=== PATIENT | male | born 1935 | race Caucasian/White ===

== ENCOUNTER 2017-09-11 11:41 | Inpatient (IN) | payer MEDICARE, OTHER ==
[2017-09-11] VITALS (8 sets, daily range): BP systolic 115–155; BP diastolic 47–100
[~2017-09-11] VITALS: Ht 177.8 cm; Wt 67.2 kg
--- NOTE | ~2017-09-11 | WRIGHTHP ---
[place], [place] PATIENT HISTORY AND PHYSICAL EXAM NAME[facility]: [id number] UNIT #: [id number] ROOM: [facility] DOCTOR: KARL YAP MD BIRTHDATE: [birth year] DOS: 09/11/2017 HISTORY OF PRESENT ILLNESS: The patient is an 81-year-old gentleman who presented to the Emergency Department with increased weakness, hypoglycemia, not eating well recently and has cough and shortness of breath, progressively getting worse for 3-4 days. The patient was evaluated in the Emergency Department and found to be septic with an elevated lactic acid level, tachycardic, hypoxemic and chest x-ray showing lingular pneumonia. The patient looked very weak and sick and was recommended for admission and further management in the Intensive Care Unit. The patient was diagnosed as having severe sepsis, hypokalemia and elevated INR. After admission, the patient is awake, but very weak, has difficulty in speaking. He also appears short of breath and wearing oxygen by facemask. The patient's pulse ox was only 87% at room air when he presented to the Emergency Department and now he is on 4 liters of oxygen by nasal cannula and receiving breathing treatment. No recent chest pain. No other GI or urinary symptoms. REVIEW OF SYSTEMS: LUNGS: Increasing shortness of breath and hypoxemia. GASTROINTESTINAL: No nausea, vomiting, diarrhea, constipation, but the patient did have decreased appetite. CARDIOVASCULAR: No chest pains or palpitations. PHYSICAL EXAMINATION: GENERAL: The patient is somewhat lethargic and tired and short of breath, receiving oxygen, unable to provide much history, generalized weakness. VITAL SIGNS: Blood pressure 146/68, heart rate has improved to 82 beats per minute from 112 beats per minute at admission, breathing 23 times per minute, temperature of 98.6. HEENT AND NECK: Extraocular movements are intact. Sclerae are anicteric. Oral mucosa is moist and clean. No obvious facial weakness. Neck is supple without any lymphadenopathy. No thyromegaly. No JVD. No carotid arterial bruits. LUNGS: Clear to auscultation. No wheezing. No rhonchi. CARDIOVASCULAR SYSTEM: Heart rate is regular in rate and rhythm. S1 and S2 normally audible. No significant murmur or any other abnormal cardiac sounds. ABDOMEN: Soft, nontender. No obvious organomegaly. Bowel sounds are present. No obvious herniation. EXTREMITIES: Without significant cyanosis or edema. Warm to touch. CENTRAL NERVOUS SYSTEM: Alert and oriented x 3. Cranial nerves II-XII are intact. Speech is normal. The patient is able to move all extremities. Normal muscle strength. Deep tendon reflexes are equal on both sides. Plantars were downgoing. LABORATORY DATA: BUN and creatinine 44 and 1.4, potassium low at 3. ProBNP of 2300. Chest x-ray is showing infiltrate consistent with bronchopneumonia in the anterior segment of the lingula. White cell count elevated to 25,000, hemoglobin of 18. IMPRESSION AND PLAN: [place], [place] PATIENT HISTORY AND PHYSICAL EXAM NAME: GIOVANNI TAYLOR UNIT #: [id number] ROOM: [facility] DOCTOR: KARL YAP MD BIRTHDATE: [birth year] 1. The patient presenting with severe sepsis, pneumonia, tachycardia and leukocytosis with elevation of lactic acid level to 2.8. The patient is to be given normal saline, antibiotics, oxygen, breathing treatments and followed closely in the ICU. The patient's prognosis remains guarded. 2. Hypoglycemia, apparently because the patient has been on insulin and also not eating well because of his acute sickness. I will hold back his insulin, check his sugars every 4 hours and treated accordingly. The patient will be given Glucerna supplements and kept on no concentrated sweet diet. 3. Benign essential hypertension. Blood pressure will be monitored and treated. The patient is to be kept on lisinopril, diltiazem and Coreg that he was taking at home. 4. Lingular pneumonia, to be treated with Levaquin. 5. Chronic atrial fibrillation, with heart rate is controlled with digoxin. The patient is anticoagulated with Coumadin. 6. Elevated INR to 6. Coumadin has been put on hold and protimes will be monitored daily. 7. Type 2 diabetes mellitus. The patient is hypoglycemic apparently from not eating well. Blood sugar is to be monitored and treated accordingly. His insulin has been held back. 8. Coronary artery disease of the [place] vessels and coronary artery bypass grafts, without any chest pains recently. 9. History of centrilobular emphysema. I will continue bronchodilators. 10. Mixed hyperlipidemia, treated with Pravachol, which will be continued. 11. Vitamin D deficiency, treated with supplements. KARL YAP MD CM:HISPHYS:PATIENT HISTORY AND PHYSICAL EXAMINATION [id number] KARL YAP MD 09/11/17 1756 interface
--- NOTE | ~2017-09-11 | PROC NOTE ---
[place], [place] PROCEDURE NOTE NAME: GIOVANNI TAYLOR UNIT #: [id number] [facility] DOCTOR: JOVON GREGORY BIRTHDATE: [birth year] DOS: MBSS REPORT REFERRING PHYSICIAN: Dr. Mcmanus. RADIOLOGIST: Dr. Farmer. INDICATIONS: The patient is an 81-year-old male admitted to [facility] on 09/11/2017 due to increased weakness, shortness of breath, cough and hypokalemia. Chest x-ray was revealing for lingular pneumonia. The patient also with sepsis. MBS ordered due to concern for aspiration. PREVIOUS MEDICAL HISTORY: Includes CAD, DM 2 and AFib. INTERVIEW: The patient denied concerns regarding swallowing. He reported that he was tolerating a regular diet with thin liquids prior to admission and has not had pneumonia since 2016. He endorsed significant weakness currently and baseline cough. He denied coughing while eating/drinking. ORAL MECHANISM/MOTOR SPEECH EXAM: Mild asymmetry of the lower face noted in motion with right side range of motion reduced. Tongue strength mildly reduced. Volitional cough and glottal coup reduced for sharpness. The patient with upper and lower dentures in place. The patient's speech was 100% comprehensible with no evidence of motor speech disorder. MBSS: This exam was viewed in the lateral plane. The patient trialled the following barium impregnated consistencies: Single sips of thin liquid via straw x 1, multiple consecutive sips of thin liquid via straw x 1, single sip of nectar thickened liquid via straw x 1, multiple consecutive sips of nectar thickened liquids via straw x 1, teaspoon of pureed x 1, bite of soft solid x 1 and bite of coarse solid x 1. The patient was impulsive throughout, taking large bites/sips and required frequent cues to limit bolus size. ORAL PHASE: Adequate bolus acceptance with no anterior loss noted. AP bolus transit was timely and adequate. Mastication of coarse solid was moderately prolonged and incomplete. The patient masticated in munching pattern. Mastication of soft solid was timely and adequate. Piecemeal deglutition noted with solids. Mild oral residue noted across consistencies, cleared with consecutive swallows. PHARYNGEAL PHASE: Initiation of the swallow response was timely. HLE was reduced with subsequent incomplete epiglottic retroflexion. This resulted in mild amount of silent aspiration of thin liquids during the swallow. No aspiration or penetration was observed with all other consistencies. Base of tongue to posterior pharyngeal wall contact was adequate. Trace pharyngeal residue maintained post-swallow which cleared with subsequent swallows. UES: Unremarkable. [place], [place] PROCEDURE NOTE NAME: GIOVANNI TAYLOR UNIT #: [id number] ROOM: [facility] DOCTOR: JOVON GREGORY BIRTHDATE: [birth year] COMPENSATORY STRATEGIES: The patient independently implemented chin tuck while drinking. This did not eliminate aspiration or penetration. No other strategies were trialed due to nature of dysphagia and patient's difficulty following cues. IMPRESSION: The patient presents with mild oropharyngeal dysphagia classified by incomplete mastication of solids and reduced HLE with resulting silent aspiration of thin liquids. Recommend soft diet with nectar thickened liquids and [employer]ESSOR treatment. RECOMMENDATIONS: 1. Downgrade diet to soft foods with nectar thickened liquids. 2. Aspiration precautions: Fully upright, awake and alert for all p.o., small bites/sips, oral care at least b.i.d. PLAN OF CARE: M[employer] COMMUNICATION[employer] PROFESSOR will follow the patient to ensure tolerance to diet, promote adherence aspiration precautions and provide dysphagia treatment aimed at improving pharyngeal strength. Findings and recommendations were discussed with the patient and RN who indicated understanding. Thank you for consulting. If you have any questions or concerns, please contact the M[employer] COMMUNICATION[employer] PROFESSOR Department at [phone]. Jovon Wells CM:PROCNOTE:PROCEDURE NOTE [id number] JOVON GREGORY
--- NOTE | ~2017-09-11 | EKG ---
[place], [place] ELECTROCARDIOGRAM REPORT NAME: GIOVANNI TAYLOR UNIT #: [id number] ROOM: [facility] DOCTOR: YVETTE MAI MD,JHONNY BIRTHDATE: [birth year] DOS: 09/13/2017 Electrocardiogram done for the patient 09/13/2017 at 2:04 p.m. Atrial fibrillation noted with a heart rate of 66 beats per minute. Nonspecific ST-T changes noted. The patient with poor R-wave progression. JHONNY CRAWFORD MD CM:EKGRPT:ELECTROCARDIOGRAM REPORT [id number] JHONNY MAI MD
--- NOTE | ~2017-09-11 | PROC NOTE ---
[place], [place] PROCEDURE NOTE NAME: GIOVANNI TAYLOR UNIT #: [id number] ROOM: 522 DOCTOR: YVETTE MAI MD,JHONNY BIRTHDATE: [birth year] DOS: 09/15/2017 BRONCHOSCOPY PREOPERATIVE DIAGNOSES: The patient's severe ineffective cough for this patient without any sputum expectoration with acute respiratory failure, sepsis. POSTOPERATIVE DIAGNOSES: The patient has evidence of copious amount of mucopurulent material removed from the endobronchial tree bilaterally, much greater on the left than the right side. Also, the mucus impaction cleared. PROCEDURE DESCRIPTION: Informed consent obtained for the patient. He was brought to the OR and placed in supine position. Conscious sedation administered by the Anesthesia Department. After achieving proper sedation, airway introduced into the mouth. Bronchoscope was introduced into the airway into laryngeal area. Epiglottis vocal cords were seen. Bronchoscope advanced to the vocal cords into tracheal lumen. Tracheal lumen for the patient was identified. It shows a copious amount of thick green purulent secretion tracking down to the nita level. Secretion suctioned out clear with normal saline wash. The right upper, right middle, rowing lower, left upper, lingular lower bronchi were all examined. The patient was noted with a copious amount of purulent secretion causing impaction of the airways, the left upper, lingular lower lobe bronchi and the left main stem bronchus. All secretions suctioned out clear to the subsegments for this patient with help of normal saline wash. Right upper, right middle, right lower lobe opening were noted with moderate amount of bilious secretion with moderate impaction of the mucus as well. All the secretions suctioned out clear for the patient up with normal saline wash. Mucus plugs are removed. Procedure was well tolerated by the patient without any complications. Postoperative findings will be discussed with the patient once the patient recovers the effects of acute sedation. No immediate changes in the treatment at this time will be necessary. JHONNY CRAWFORD MD CM:PROCNOTE:PROCEDURE NOTE [id number] JHONNY MAI MD
--- NOTE | ~2017-09-11 | PR ---
[place], [place] PROGRESS NOTE NAME: GIOVANNI TAYLOR UNIT #: [id number] ROOM: 522 DOCTOR: YVETTE MAI MD,JHONNY BIRTHDATE: [birth year] DOS: 09/15/2017 PULMONARY PROGRESS NOTE SUBJECTIVE: He was seen and examined on 09/15/2017. Comfortably resting. Coughing has been noted excessive chest congestion, inability to expectorate sputum. At the present time, the patient denies symptoms of shortness of breath at rest. There were no symptoms of chest pain or hemoptysis reported. Wheezing was noted intermittently. He is n.p.o. past midnight for bronchoscopy. Denies symptoms of nausea, vomiting, diarrhea, or abdominal pain. Denies any hematuria, suprapubic pain. No symptoms of headache or diplopia. General weakness, fatigue with persistent. OBJECTIVE: VITAL SIGNS: Normal temperature this morning, respiratory rate 18, heart rate of 89, blood pressure 125/63 and 141/60. The pulse oxygen saturation on 2 liters nasal cannula 98% saturation. HEENT: Age-related changes. Head was atraumatic. Eyes nonicterus. NECK: Supple. CARDIOVASCULAR: S1, S2 is audible. LUNGS: Noted general reduction in the breath sounds bilaterally. ABDOMEN: Soft, nontender and flat. EXTREMITIES: Without acute edema. MUSCULOSKELETAL: Without any acute deformities. IMPRESSION: 1. The patient who has been noted resolution Coumadin toxicity. 2. The patient with oropharyngeal dysphagia. 3. Acute hypoxic respiratory failure. 4. Chronic obstructive pulmonary disease. 5. Acute bronchitis, rule out any pneumonia. 6. Severe sepsis, which has been currently noted, resolved. PLAN OF MANAGEMENT: Proceed with bronchoscopy at this time. Bronchodilator to be continued. Additional change in treatment as necessary will be ordered accordingly. INR was still noted in the low therapeutic range at 2.0 today. The patient remains off the Coumadin and other anticoagulants. No changes in antibiotic this morning. The culture will be reviewed with the bronchoscopy for any modification treatment to be done after that. Usual care, other supportive therapy, plan of management and care. Oxygen supplementation to maintain a pulse ox saturation of 92% or greater. [place], [place] PROGRESS NOTE NAME: GIOVANNI TAYLOR UNIT #: [id number] ROOM: 522 DOCTOR: JHONNY TABOR MD BIRTHDATE: [birth year] JHONNY CRAWFORD MD CM:RASHMI [id number] JHONNY MAI MD 09/17/17 0104 interface
--- NOTE | ~2017-09-11 | CON ---
[place], [place] REPORT OF CONSULTATION NAME: GIOVANNI TAYLOR UNIT #: [id number] ROOM: [facility] DOCTOR: YVETTE MAI MD,JHONNY BIRTHDATE: [birth year] DOS: 09/12/2017 PULMONARY CONSULTATION AND EVALUATION MANAGEMENT REASON FOR CONSULTATION: Assess the patient for current acute pneumonia. RQUESTING PHYSICIAN: This is an 81-year-old white male for the consultation requested by Dr. Mcmanus. HISTORY OF PRESENT ILLNESS: This is an 81-year-old white male who has been seen in the Emergency Room on 09/11/2017. The patient reported symptoms of having severe cough, which has been noted for the past several days, getting progressively worse. The cough has been noted without any sputum expectoration. Cough has been noted multiple times. The patient denies any symptoms of hemoptysis with that. Shortness of breath was also reported with symptoms of chest pain described. There were no symptoms of wheezing reported by the patient. The patient has been brought to the hospital with hypoxia was also noted. Admission pulse ox saturation 87%. The patient has been assessed in the hospital. Chest x-ray of the patient reported as a possibility of acute pneumonia in the left lingular density and required further hospitalization. He denies any symptoms of chest pain at this time. Shortness of breath has been noted somewhat decreased. The cough is still noted intermittently, but the intensity and frequency noted somewhat decreased. REVIEW OF SYSTEMS: CONSTITUTIONAL SYMPTOMS: Fatigue and tiredness noted without symptoms of fever or chills. EYES: Denies any burning, redness, or tenderness. EARS, NOSE, THROAT SYMPTOMS: Denies sore throat, hoarseness, otalgia, postnasal drainage or epistaxis. CARDIOVASCULAR: Denies abdominal pain, edema, pain, lower extremities. GASTROINTESTINAL: The patient did not report symptoms of nausea, vomiting, diarrhea, abdominal pain, hematemesis, melena, or hematochezia. GENITOURINARY SYMPTOMS: No dysuria, suprapubic pain, hematuria. CENTRAL NERVOUS SYSTEM: Denies dizziness, headache, diplopia, syncopal episode, general weakness, fatigue was reported. Remaining systems for the patient was noted to be negative. PAST MEDICAL HISTORY: 1. The patient was reported with coronary artery disease. 2. Type 2 diabetes mellitus. 3. Atrial fibrillation on anticoagulation, chronic. 4. Essential hypertension. 5. History of chronic obstructive pulmonary disease. The patient has recently used the doxycycline and prednisone. PAST SURGICAL HISTORY: 1. Noted as coronary artery bypass graft in 1987. 2. Tonsillectomy. [place], [place] REPORT OF CONSULTATION NAME: GIOVANNI TAYLOR UNIT #: [id number] ROOM: [facility] DOCTOR: JHONNY TABOR MD BIRTHDATE: [birth year] SOCIAL HISTORY: The patient lives at home. He has not been reported any history of tobacco use. There was no history of alcohol or illicit drug use. FAMILY HISTORY: Reported for diabetes, hypertension, and CVA. HOME MEDICATIONS: Listed use of Advair, recent use of tapering prednisone, lisinopril, hydrochlorothiazide, metformin, Coumadin, digoxin, Coreg, and 70/30 mixture of insulin as well as DuoNeb for the patient p.r.n. use as well. DRUG ALLERGIES: Noted no known drug allergies. PHYSICAL EXAMINATION: GENERAL: This is an 81-year-old male patient currently comfortably resting on his bed without acute distress. Height of 5 feet 10 inches, weight 140 pounds, BMI 20. VITAL SIGNS: The patient shows a normal temperature, respiratory rate 20-22, heart rate of 79-112 noted on admission, blood pressure 140/90-139/55. Pulse oxygen saturation for the patient on 2 liters nasal cannula 94% saturation on room air, 87% on rest. HEENT: Examination shows head was atraumatic. Eyes nonicterus. NECK: Supple. CARDIOVASCULAR: S1, S2 is audible. LUNGS: The patient was noted without any wheezing or crackles at the present time. The breaths are noted mildly diminished bilaterally. ABDOMEN: Soft, nontender, flat. EXTREMITIES: The patient noted without any acute edema. MUSCULOSKELETAL: No obvious deformities. SKIN: No lesions or rashes. CENTRAL NERVOUS SYSTEM: The patient noted as nonfocal. LABORATORY DATA: Lactic acid 2.8 on admission, follow up 2.3. Influenza A and B, nasal washing antigen yesterday were normal. CBC that was done yesterday, WBC count 25.1, hemoglobin 18.2, hematocrit 52.4, platelet count 626,000, 95% segmented neutrophils noted. PT/INR noted 6.1 yesterday with PTT elevated as 51 as well. CMP of the patient that was done yesterday, BUN 44, creatinine 1.39. Potassium 3.0. Total bilirubin 1.2. Troponin 0.05. The glucose noted as 69 yesterday as well, which is already treated. The BMP 420, glucose 190, BUN 37, creatinine 1.23. PT/INR noted as 7.9. CBC of the patient this morning, WBC 19.9, hemoglobin 15.2, hematocrit 47.5, platelet count 418,000, 85% segmented neutrophils. Urine culture that was done yesterday showed no bacterial growth. The chest x-ray just one view was done, which was reviewed, shows density noted in the right hilar area and a lymph node as well in lingula could be a pulmonary nodule. Lateral view does not well define current abnormality. IMPRESSION: 1. The patient will be currently admitted to the hospital as he meet the criteria for acute sepsis, most likely related to acute pneumonia. 2. Density which are noted in the left lingula, possibly right perihilar infiltration with a consideration for the acute pneumonia as well, rule out any 2 nodules in the lingula as well. [place], [place] REPORT OF CONSULTATION NAME: GIOVANNI TAYLOR UNIT #: [id number] ROOM: [facility] DOCTOR: YVETTE MAI MD,[facility] BIRTHDATE: [birth year] 3. The patient with acute hypoxic respiratory failure secondary to that. 4. History of chronic obstructive pulmonary disease at this time, but not noted any evidence of acute exacerbation. 5. Given the toxicity related to drug interaction for elevation of the INR with the recent use of doxycycline very likely reason. 6. Chronic atrial fibrillation, mild rapid ventricular response noted on admission. 7. Polycythemia, most likely secondary to hemoconcentration developed from volume contraction, seemed to be resolved. 8. Acute kidney injury, also resulting from complication of prerenal component with volume depletion and the sepsis combination. 9. Type 2 diabetes mellitus. PLAN OF TREATMENT: At this time, the patient will be continued on Levaquin, has received yesterday Rocephin and Zithromax. The oxygen supplementation will be continued to maintain pulse ox saturation 92% or greater. Monitor the cultures of the blood, which were taken yesterday. Intervening to be carefully given not to cause the fluid overload. The Coumadin remains on hold until the INR noted to normal range that will be started at a lower dose with usual dose with close monitoring to be continued. Supportive therapy as a plan of management usual treatment. Bronchodilators, continue help mobilize secretions as well has been ordered. Sputum for Gram stain and culture if the patient is able to expectorate sputum could be done as well. Additional treatment changes to be made for the patient based on progression of the illness. Chest x-ray PA and lateral will be repeated tomorrow morning as well to reassess the current pulmonary abnormality including density to rule out any nodules. Thank you for allowing me to participate in the care of this patient. JHONNY CRAWFORD MD CM:CONSTR:REPORT OF CONSULTATION 1425 09/13/17 0230 interface
--- NOTE | ~2017-09-11 | PR ---
[place], [place] PROGRESS NOTE NAME: GIOVANNI TAYLOR UNIT #: [id number] ROOM: [facility] DOCTOR: YVETTE MAI MD,JHONNY BIRTHDATE: [birth year] DOS: 09/14/2017 SUBJECTIVE: The patient was still noted chest congestion. The patient is coughing and able to expectorate sputum. Denies symptoms of hemoptysis. Denies symptoms of nausea, vomiting, diarrhea, or dysphagia. Denies symptoms of hematuria, pain in the flank area. The patient is having general weakness, fatigue was noted. Remaining systems were reviewed. They were noted all negative. OBJECTIVE: VITAL SIGNS: Normal temperature, respiratory rate 20, heart rate 76, blood pressure 142/64. The pulse oxygen saturation on 2 liters 99% saturation. HEENT: Showed no new change. NECK: Supple. CARDIOVASCULAR: S1, S2 audible. LUNGS: Noted with moderate decreased breath sounds with scattered expiratory wheezing and crackles. ABDOMEN: Soft, nontender. Bowel sounds present. EXTREMITIES: Without any acute edema. MUSCULOSKELETAL: Without an acute deformity. SKIN: Visible skin with no lesions or rashes. CENTRAL NERVOUS SYSTEM: Cranial nerves 2-12 intact, generally weak and fatigued were noted without any focal deficit. LABORATORY DATA: CBC this morning: WBC count of 16.5, hemoglobin and hematocrit normal, platelet count 421,000. BMP of the patient this morning, BUN 33, creatinine normal, glucose 133. PT/INR was still noted therapeutic at 2.6. IMPRESSION: 1. The patient with resolving Coumadin toxicity noted therapeutic INR for bronchoscopy tomorrow. ____ secretion, mucus impaction of major airways with acute exacerbation of chronic obstructive pulmonary disease. 2. Chronic atrial fibrillation. PLAN OF MANAGEMENT: The patient ordered the Eliquis by the Cardiology Services, which were placed on hold. The anticoagulation placed on hold for bronchoscopy until tomorrow evening. The patient will be continued on the previous therapy, plan of management and care plan. Usual care. Other supportive plan of management and care. Physical therapy might be necessary for this patient for the overall weakness and fatigue. [place], [place] PROGRESS NOTE NAME: GIOVANNI TAYLOR UNIT #: [id number] ROOM: [facility] DOCTOR: YVETTE MAI MD,JHONNY BIRTHDATE: [birth year] JHONNY CRAWFORD MD CM:PNTRANS [id number] JHONNY MAI MD 09/15/17 0952 interface
--- NOTE | ~2017-09-11 | PR ---
[place], [place] PROGRESS NOTE NAME: GIOVANNI TAYLOR UNIT #: [id number] ROOM: [facility]- DOCTOR: YVETTE MAI MD,JHONNY BIRTHDATE: [birth year] DOS: 09/13/2017 PULMONARY PROGRESS NOTE SUBJECTIVE: The patient noted comfortable at this time without any acute distress, but still noted with a cough, which were noted quite a bit for the patient. Inability to expectorate sputum. Excessive chest congestion were reported. He denies symptoms of abdominal pain, nausea or vomiting. The patient has not been noted with any symptoms of pain of the lower extremity. General weakness and fatigue were still noted. Denies symptoms of nausea or vomiting. Remaining systems were reviewed. They were noted all negative. OBJECTIVE: VITAL SIGNS: Normal temperature, respiratory rate 20, heart rate 72, blood pressure 152/68. Intake patient 1370, output 1050 mL. Pulse oxygen saturation 3 liters 96-95% saturation. HEENT: Examination shows head was atraumatic. Eyes nonicterus. NECK: Supple. CARDIOVASCULAR: S1, S2 is audible. LUNGS: The patient was noted without any wheezing or crackles at the present time. ABDOMEN: Soft, nontender. EXTREMITIES: The patient noted without any acute edema. SKIN: Visible skin, no lesions or rashes. MUSCULOSKELETAL: Noted without any acute deformities. CENTRAL NERVOUS SYSTEM: For the patient was noted at this time intact. LABORATORY DATA: The PT/INR for the patient was noted as 3.5 today. BMP this morning, BUN 36, creatinine was normal, glucose 137. Remaining electrolytes, normal. CBC of the patient today: WBC count 17.7, hemoglobin and hematocrit normal, platelet count was normal. The chest x-ray of the patient that was done in the morning, does not show any acute infiltration, changes of COPD and hyperinflation were noted. Modified barium swallow was also done for this patient on 09/12/2017 shows the patient was noted with dysphagia for the patient with aspiration. IMPRESSION: 1. The patient who has been currently admitted to the hospital noted with severe acute sepsis for the patient's acute tracheobronchitis. 2. Oropharyngeal dysphagia. 3. Acute hypoxic respiratory failure. 4. Suspected diagnosis of chronic obstructive pulmonary disease as well. 5. Drug interaction. The patient elevation with Coumadin toxicity resolving. 6. Acute kidney injury ____ resolving. 7. Resolving overall sepsis. PLAN OF TREATMENT: No changes in the plan of therapy for the patient except continue to hold the Coumadin. The patient's Coumadin will be resumed on Friday [place], [place] PROGRESS NOTE NAME: GIOVANNI TAYLOR UNIT #: [id number] ROOM: [facility] DOCTOR: YVETTE MAI MD,JHONNY BIRTHDATE: [birth year] as he was assessed for the fibrobronchoscopy because of severe coughing, inability to expectorate sputum to be done on Friday morning. By that time, the PT/INR should be therapeutic. Continue current antibiotic. Follow closely and strict aspiration precautions to prevent aspirations. The risk and the benefits of procedure has been discussed with the patient. He was agreeable and the procedure was scheduled to be done in the OR for the patient on 09/15/2017. Other supportive plan of management and care plan. JHONNY CRAWFORD MD CM:PNTRANS [phone] [id number] JHONNY MAI MD 09/13/172111 interface
--- NOTE | ~2017-09-11 | PR ---
[place], [place] PROGRESS NOTE NAME: GIOVANNI TAYLOR UNIT #: [id number] ROOM: [facility] DOCTOR: KARL YAP MD BIRTHDATE: [birth year] DOS: 09/15/2017 SUBJECTIVE: The patient continues to improve, he is going for bronchoscopy by Dr. Alvarado today. OBJECTIVE: VITAL SIGNS: Blood pressure 123/72, heart rate of 100 beats per minute, afebrile, breathing 22 times per minute. GENERAL APPEARANCE: The patient is alert and oriented times 3, in no visible distress. Generalized weakness. HEENT AND NECK: Exam within normal limits. CARDIOVASCULAR SYSTEM: Heart rate is regular in rate and rhythm. S1 and S2 normally audible. LUNGS: Clear to auscultation. ABDOMEN: Soft, nontender. No obvious organomegaly. Bowel sounds are present. EXTREMITIES: Without significant cyanosis or edema. IMPRESSION: 1. The patient with large lingular pneumonia, which has resolved on the chest x-ray. The patient going for bronchoscopy by Dr. Alvarado today. 2. Acute exacerbation of chronic obstructive pulmonary disease, clinically improving with treatment. The patient is being treated with bronchodilators and antibiotics. 3. Leukocytosis, has been improving with treatment with antibiotics. 4. Mixed hyperlipidemia, treated with Pravachol. 5. Vitamin D deficiency, treated with supplements. 6. Modified barium swallowing study to look for aspiration still pending. 7. 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 8. Chronic atrial fibrillation with controlled heart rates. The patient anticoagulated with apixaban. 9. Adult failure to thrive and generalized weakness. The patient working with physical therapy. The patient waiting for transfer to sn[facility] facility. [place], [place] PROGRESS NOTE NAME: GIOVANNI TAYLOR UNIT #: [id number] ROOM: [facility] DOCTOR: KARL YAP MD BIRTHDATE: [birth year] KARL YAP MD CM:PNTRANS [phone] KARL YAP MD 09/15/17 1056 interface
--- NOTE | ~2017-09-11 | PR ---
[place], [place] PROGRESS NOTE NAME: GIOVANNI TAYLOR UNIT #: [id number] ROOM: 522 DOCTOR: KARL YAP MD BIRTHDATE: [birth year] DOS: 09/16/2017 ADDENDUM PHYSICAL EXAMINATION: GENERAL APPEARANCE: Generalized weakness. HEENT AND NECK: Exam within normal limits. CARDIOVASCULAR SYSTEM: Heart rate is regular in rate and rhythm. S1 and S2 normally audible. LUNGS: Clear to auscultation. ABDOMEN: Soft, nontender. No obvious organomegaly. Bowel sounds are present. EXTREMITIES: Without significant cyanosis or edema. IMPRESSION AND PLAN: 1. Patient with large lingular pneumonia, resolved on chest x-ray. Patient is status post bronchoscopy by Dr. Alvarado and continued on bronchodilators and antibiotics. 2. Old age and adult failure to thrive. Patient waiting for transfer to [facility] facility. 3. Acute exacerbation of chronic obstructive pulmonary disease, improving with treatment. 4. Leukocytosis related to pneumonia, improved with treatment with antibiotics, but now it is apparently secondary to use of corticosteroids. 5. 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 6. Chronic atrial fibrillation with controlled heart rates. Patient anticoagulated with apixaban now. 7. Adult failure to thrive and generalized weakness. Patient working with physical therapy and improving. 8. Mixed hyperlipidemia, treated with Pravachol. KARL YAP MD CM:PNTRANS [phone] KARL YAP MD 09/17/17 0523 interface
--- NOTE | ~2017-09-11 | PR ---
[place], [place] PROGRESS NOTE NAME: GIOVANNI TAYLOR UNIT #: [id number] ROOM: 522 DOCTOR: YVETTE MAI MD,JHONNY BIRTHDATE: [birth year] DOS: 09/17/2017 PULMONARY PROGRESS NOTE SUBJECTIVE: He has been noted comfortable, continued with high resolution of the cough at this time progressively. Denies symptoms of chest pain, abdominal pain. Denies symptoms of nausea or vomiting. OBJECTIVE: VITAL SIGNS: For the patient which are recorded showed normal temperature, respiratory rate 18, heart rate 77, blood pressure 130/74. The pulse oxygen saturation noted on room air 92% saturation at rest. HEENT: No acute change. NECK: Supple. CARDIOVASCULAR: S1, S2 is audible. LUNGS: Noted without any wheezing or crackles at the present time. ABDOMEN: Soft, nontender. EXTREMITIES: Without any acute edema. IMPRESSION: 1. Stable respiratory status was noted at the present time with marked improvement noted in respiratory symptom, post-bronchoscopy. 2. Influenza B viral infection. PLAN OF MANAGEMENT: The patient could be discharged today on oral medication by the primary care physician. Continue the therapy, plan of management. Usual treatment, all supportive plan of therapies. JHONNY CRAWFORD MD CM:PNTRANS [phone] JHONNY MAI MD 09/18/17215 interface
--- NOTE | ~2017-09-11 | PR ---
[place], [place] PROGRESS NOTE NAME: GIOVANNI TAYLOR UNIT #: [id number] ROOM: 522 DOCTOR: JHONNY TABOR MD BIRTHDATE: [birth year] DOS: 09/16/2017 PULMONARY PROGRESS NOTE SUBJECTIVE: He had a bronchoscopy done yesterday, copious amount of purulent material was removed from the endobronchial tree bilaterally successfully. This had resulted in reduction of the symptoms of cough for the patient. Shortness of breath is still noted with intermittent coughing. Wheezing was reported at times. Denies symptoms of abdominal pain, nausea, vomiting or diarrhea. The patient denies edema or pain in the lower extremities. The respiratory viral culture was noted positive for the patient with influenza B infection with extended viral molecular testing. The patient was transferred to contact isolation to a single room. He denies symptoms of nausea, vomiting, diarrhea or dysphagia. Denies symptoms of headache or diplopia. Denies any pain of the lower extremity. Remaining systems were reviewed, they were noted all negative. PHYSICAL EXAMINATION: VITAL SIGNS: Normal temperature, respiratory rate 20, heart rate 80, blood pressure 118/54 to 108/62, pulse oxygen saturation on 3 liters at 93% saturation. HEENT: No acute change. NECK: Supple. CARDIOVASCULAR: S1, S2 audible. LUNGS: The patient was noted without any crackles. Scattered wheezing. ABDOMEN: Soft, flat, nontender. EXTREMITIES: Without acute edema. VISIBLE SKIN: No lesions or rashes. MUSCULOSKELETAL: Without any acute deformities. LABORATORY DATA: Reviewed today. The Gram stain of the bronchial washings yesterday with many white blood cells, moderate epithelial cells, moderate Gram-positive cocci in clusters, a few Gram-positive bacilli. CBC of 09/16/2017, WBC count 19.4, hemoglobin and hematocrit normal, platelet count was normal. The INR for the patient noted 1.6. Respiratory viral panel positive for influenza B. IMPRESSION: 1. The patient with acute severe tracheobronchitis. The patient was noted with reduction of symptoms after bronchoscopy. 2. The patient with anticoagulation that has been changed to Eliquis and Coumadin toxicity has resolved. 3. Acute sepsis, which is resolving. 4. Influenza B infection. The patient is isolated with the nasal swab on 09/11/2017. 5. Severe debility secondary to the above. PLAN OF MANAGEMENT: The patient has been started on Tamiflu. Continue current antibiotic, no changes need to be done. Monitor culture results. Bronchodilator to be continued as previously. Additional treatment changes to be done for the patient based on the progression of the illness. Usual care, [place], [place] PROGRESS NOTE NAME: GIOVANNI TAYLOR UNIT #: [id number] ROOM: 522 DOCTOR: YVETTE MAI MD,JHONNY BIRTHDATE: [birth year] other supportive plan of therapy and care. Continue optimizing nutritional status. JHONNY CRAWFORD MD CM:RASHMI [id number] JHONNY MAI MD 09/17/17 0445 interface
--- NOTE | ~2017-09-11 | DS ---
[place], [place] DISCHARGE SUMMARY NAME: [facility]OR [facility] [id number] UNIT #: [id number] ROOM: 522 DOCTOR: KARL YAP MD BIRTHDATE: [birth year] DOS: 09/17/2017 DISCHARGE DIAGNOSES: 1. The patient with large lingual pneumonia, resolved with treatment. 2. Acute exacerbation of chronic obstructive pulmonary disease with acute over chronic respiratory failure, resolved with treatment. 3. Leukocytosis related to pneumonia and corticosteroids. 4. 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 5. Chronic atrial fibrillation, the patient anticoagulated with apixaban now. 6. Adult failure to thrive and generalized weakness. 7. Mixed hyperlipidemia. 8. Severe sepsis with pneumonia, tachycardia, leukocytosis and lactic acid level elevation at admission, all resolved. 9. Benign essential hypertension. 10. Type 2 diabetes mellitus. 11. 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 12. Mixed hyperlipidemia. 13. Vitamin D deficiency. 14. Coagulopathy with an INR of 6, resolved with treatment. HOSPITAL COURSE: The patient presented to the Emergency Department at [facility] with sepsis, pneumonia, tachycardia, leukocytosis and elevation of lactic acid levels. The patient was found to have lingular pneumonia, was admitted to ICU, followed closely and seen by Pulmonology. The patient was taken for a bronchoscopy, treated with antibiotics, hydration and he had severe leukocytosis, gradually improved with treatment. The patient appears to be stabilized, but still very weak and going to halfway facility for continued antibiotics and physical therapy and rehabilitation before he can be sent home because he lives independently normally. 1. Hypoglycemia, resolved after his insulin was held back and he started eating better. He is a type 2 diabetic. 2. Benign essential hypertension, treated and controlled. Initially, he was hypotensive, but now his blood pressures have normalized with hydration. 3. Coagulopathy with INR elevated to 6. The patient's Coumadin was held back and finally he was started on apixaban because his INRs have been difficult to manage with Coumadin. 4. Type 2 diabetes mellitus. Blood sugars are monitored, treated and controlled. 5. Coronary artery disease of [place] vessels and coronary artery bypass grafts without any chest pains. 6. Acute exacerbation of chronic obstructive pulmonary disease, treated with bronchodilators, oxygen, and antibiotics and corticosteroids. 7. Mixed hyperlipidemia. Continue treatment with Pravachol. 8. Vitamin D deficiency. The patient remains on supplements. LABORATORY DATA: Blood cultures finally are coming negative. White cell count 19,000, normal CBC otherwise and platelets. Legionella antigens were negative. Strep was negative. [place], [place] DISCHARGE SUMMARY NAME: GIOVANNI TAYLOR UNIT #: [id number] ROOM: 522 DOCTOR: KARL YAP MD BIRTHDATE: [birth year] DISCHARGE MANAGEMENT: Apixaban 2.5 mg b.i.d., digoxin 125 mcg daily, metformin 250 mcg before meals, no concentrated sweet diet. Lisinopril 20 mg b.i.d., Coreg 3.125 mg b.i.d., Levaquin 750 mg every other day 5 doses, then to be stopped. Consult physical therapy and occupational therapy. KARL YAP MD CM:CHERY [phone] KARL YAP MD 09/17/17 1127 interface
--- NOTE | ~2017-09-11 | PR ---
[place], [place] PROGRESS NOTE NAME: GIOVANNI TAYLOR UNIT #: [id number] ROOM: [facility] DOCTOR: KARL YAP MD BIRTHDATE: [birth year] DOS: 09/12/2017 SUBJECTIVE: The patient awake, alert, feeling much better than yesterday. OBJECTIVE: VITAL SIGNS: Blood pressure 127/48, heart rate 79 beats per minute, breathing 22 times per minute, temperature 98.5 degrees Fahrenheit. GENERAL APPEARANCE: The patient is alert and oriented x 3, in no visible distress, except for generalized weakness. HEENT AND NECK: Exam within normal limits. CARDIOVASCULAR SYSTEM: Heart rate is regular in rate and rhythm. S1 and S2 normally audible. LUNGS: Clear to auscultation. ABDOMEN: Soft, nontender. No obvious organomegaly. Bowel sounds are present. EXTREMITIES: Without significant cyanosis or edema. IMPRESSION AND PLAN: 1. The patient with sepsis, severe leukocytosis, pneumonia is appearing better than yesterday. The patient also had elevated lactic acid levels. The patient is being treated with antibiotics and followed closely in the ICU. 2. Suspect aspiration pneumonia. We will check a modified barium swallowing study. 3. Coagulopathy with elevated INR, is being monitored. Coumadin is on hold. 4. Hypokalemia, treated with extra potassium supplements 5. Type 2 diabetes mellitus with hypoglycemia from patient not eating well while he is sick. The patient's insulin is on hold and sugars have improved. 6. Benign essential hypertension, monitored and controlled. 7. Lingular pneumonia as mentioned above, being treated with Levaquin. 8. Chronic atrial fibrillation. His heart rate is controlled with digoxin. The patient anticoagulated with Coumadin, which is on hold. 9. 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 Coronary artery bypass graft history. 10. Centrilobular emphysema, treated with bronchodilators, DuoNeb. 11. Mixed hyperlipidemia, being treated with Pravachol. 12. Vitamin D deficiency, treated with supplements. [place], [place] PROGRESS NOTE NAME: GIOVANNI TAYLOR UNIT #: [id number] ROOM: [facility] DOCTOR: KARL YAP MD BIRTHDATE: [birth year] KARL YAP MD CM:RASHMI [phone] KARL YAP MD 09/12/17 1455 interface
--- NOTE | ~2017-09-11 | PR ---
[place], [place] PROGRESS NOTE NAME[id number] UNIT #: [id number] ROOM: [facility] DOCTOR: KARL YAP MD BIRTHDATE: [birth year] DOS: 09/13/2017 SUBJECTIVE: The patient is appearing stronger awake, alert, oriented. OBJECTIVE: VITAL SIGNS: Blood pressure 152/68, heart rate of 72 beats per minute, breathing 20 times per minute, temperature 99 degrees Fahrenheit. GENERAL APPEARANCE: The patient is alert and oriented x 3, in no visible distress. HEENT AND NECK: Exam within normal limits. CARDIOVASCULAR SYSTEM: Heart rate is regular in rate and rhythm. S1 and S2 normally audible. LUNGS: Clear to auscultation. ABDOMEN: Soft, nontender. No obvious organomegaly. Bowel sounds are present. EXTREMITIES: Without significant cyanosis or edema. IMPRESSION AND PLAN: 1. The patient with suspected aspiration pneumonia, swallowing studies are pending, being treated with antibiotics. Repeat chest x-ray is normal. 2. Sepsis, severe leukocytosis, improving. 3. Pneumonia. The patient is clinically improving with antibiotic treatment. 4. Hypokalemia, resolved with extra potassium supplements. 5. Coagulopathy with elevated INR, returning to therapeutic range, was 3.5 today. I will restart his Coumadin. 6. Leukocytosis, improved to 17,200. 7. Lingular pneumonia, being treated and followed. 8. Chronic atrial fibrillation, with controlled heart rates. The patient is being restarted on Coumadin. 9. 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 10. Centrilobular emphysema, being treated with bronchodilators. 11. Mixed hyperlipidemia, being treated with Pravachol. 12. V vitamin D deficiency, treated with supplements. KARL YAP MD CM:PNMADALYN [phone] KARL YAP MD 09/13/171837 interface
--- NOTE | ~2017-09-11 | PR ---
[place], [place] PROGRESS NOTE [id number] #: [id number] ROOM: [facility] DOCTOR: KARL YAP MD BIRTHDATE: [birth year] DOS: 09/14/2017 SUBJECTIVE: The patient continues to feel much better. He is scheduled for a bronchoscopy tomorrow. OBJECTIVE: VITAL SIGNS: Blood pressure 127/46 over 74 beats per minute, breathing 16 times per minute, temperature 98.7 degrees Fahrenheit. GENERAL APPEARANCE: The patient is alert and oriented x 3, in no visible distress, except for generalized weakness. HEENT AND NECK: Exam within normal limits. CARDIOVASCULAR SYSTEM: Heart rate is regular in rate and rhythm. S1 and S2 normally audible. LUNGS: Clear to auscultation. ABDOMEN: Soft, nontender. No obvious organomegaly. Bowel sounds are present. EXTREMITIES: Without significant cyanosis or edema. IMPRESSION AND PLAN: 1. The patient with a large lingular pneumonia, which is clinically improving and he is scheduled for a bronchoscopy tomorrow with Dr. Alvarado. 2. Sepsis, leukocytosis, still improving. I will continue his blood counts. 3. Adult failure to thrive, generalized weakness. The patient is working in Physical Therapy. 4. Chronic atrial fibrillation, with controlled heart rates. The patient is anticoagulated with apixaban now. 5. 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 6. Centrilobular emphysema, treated with bronchodilators. 7. Acute exacerbation of chronic obstructive pulmonary disease, has improved. 8. Mixed hyperlipidemia, treated with Pravachol. 9. Vitamin D deficiency, treated with supplements. 10. The patient is being checked for aspiration. Modified barium swallowing study has been ordered, but pending. KARL YAP MD CM:PNTRANS [phone] KARL YAP MD 09/14/171851 interface
[~2017-09-11 11:41] MED LIST: ADVAIR 250/501 EA INH; COREG3.125 MG PO; COREG6.25 MG PO; COUMADIN3 M1 PO; DELTASONE5 MG PO; DIGOXIN0.125 MG PO; DUONEB 3 MG/3 ML3 M1 NEB; HUMULIN 70/30 PE3 ML SC; HYDR12.5C PO; ISORDIL PO; ISOSORBIDE MONO60 MG PO; LANOXIN0.125 MG PO; LISINOPRIL AND1 TA2 PO; LISINOPRIL2.5 MG PO; LISINOPRIL20 MG PO; LOMOTIL 0.025 M1 TA1 PO; METFORMIN500 MG PO; NOVOLOG 70/30 M10 ML SC; NOVOLOG1 UNIT/0.0 IV; PRAVACHOL20 MG PO; PRAVASTATIN SOD40 MG PO; ROCEPHIN1 GM IJ; VIBRAMYCIN100 M1 IV; VITAMIN D5000 I2 PO; VITAMIN D5000 I3 PO; WARFARIN SODIUM1 MG PO; ZOFRAN ODT4 MG SL
[2017-09-11 12:15] LABS: BILIRUBIN NEGATIVE (NEGATIVE); BLOOD TRACE-INTACT (NEGATIVE); CLARITY SL CLOUDY (CLEAR); COLOR YELLOW (YELLOW); GLUCOSE NEGATIVE (NEGATIVE); KETONE TRACE (NEGATIVE); LEUKO ESTERASE 2+ (NEGATIVE); NITRITE NEGATIVE (NEGATIVE); PH 5.5 (5.0-9.0); SPECIFIC GRAVITY 1.015 (1.005-1.030); UROBILINOGEN 0.2 E.U./dl (0.2-1.0)
[2017-09-11 12:19] LABS: HEMATOCRIT 52.4 % (42.0-52.0); HEMOGLOBIN 18.2 g/dl (14.0-18.0); MEAN CELL VOLUME 85.1 fl (80.0-94.0); MEAN CORPUSCULAR HGB 29.5 pg (27.0-31.0); MEAN CORPUSCULAR HGB CONC 34.7 g/dl (33.0-37.0); MEAN PLATELET VOLUME 9.8 fl (9.6-12.3); PLATELET COUNT AUTOMATED 626 10*3/uL (130-400); RED BLOOD COUNT 6.16 10*6/uL (4.50-5.90); RED CELL DISTRI WIDTH 13.1 % (0-14.5); WHITE BLOOD COUNT 25.1 10*3/uL (4.8-10.8)
[2017-09-11 12:36] LABS: ALBUMIN 3.3 gm/dl (3.1-4.5); CREATININE 1.39 mg/dL (0.70-1.30); TOTAL PROTEIN 7.9 gm/dL (6.4-8.2)
[2017-09-11 12:38] LABS: TOTAL CELLS COUNTED 100 #CELLS
[2017-09-11 12:39] LABS: BURR CELLS FEW; PLATELET SUFFICIENCY HIGH (NORMAL); POLYCHROMASIA SLIGHT; TOXIC GRANULATION SLIGHT
[2017-09-11 12:41] LABS: INTERNATIONAL NORM RATIO 6.1 (2.0-3.5)
[2017-09-11 12:42] LABS: THYROID STIM HORMONE (HS) 0.213 uIU/ml (0.358-4.75)
[2017-09-11 12:45] LABS: BACTERIA 2+; WBC 31-40 wbc/hpf (0-5)
[2017-09-11 12:46] LABS: TROPONIN I 0.053 ng/ml (<0.045)
[2017-09-12] VITALS: BP 139/55
[2017-09-12 04:00] VITALS: BP 139/53
[2017-09-12 06:14] LABS: BUN 37 mg/dl (7-24); CHLORIDE 101 mmol/L (98-107); CREATININE 1.23 mg/dL (0.70-1.30); POTASSIUM 3.3 mmol/L (3.5-5.1); SODIUM 138 mmol/L (136-145)
[2017-09-12 07:04] LABS: INTERNATIONAL NORM RATIO 7.9 (2.0-3.5)
[2017-09-12 07:16] LABS: MEAN CELL VOLUME 87.2 fl (80.0-94.0); MEAN CORPUSCULAR HGB 29.1 pg (27.0-31.0); MEAN CORPUSCULAR HGB CONC 33.4 g/dl (33.0-37.0); MEAN PLATELET VOLUME 10.3 fl (9.6-12.3); RED BLOOD COUNT 5.22 10*6/uL (4.50-5.90); RED CELL DISTRI WIDTH 13.2 % (0-14.5); WHITE BLOOD COUNT 19.9 10*3/uL (4.8-10.8)
[2017-09-12 07:17] LABS: HEMATOCRIT 45.5 % (42.0-52.0); HEMOGLOBIN 15.2 g/dl (14.0-18.0); PLATELET COUNT AUTOMATED 418 10*3/uL (130-400)
[2017-09-12 07:43] LABS: PLATELET SUFFICIENCY HIGH (NORMAL); TOTAL CELLS COUNTED 100 #CELLS
[2017-09-12 08:00] VITALS: BP 127/48
[2017-09-12 12:00] VITALS: BP 124/51
[2017-09-12 16:00] VITALS: BP 115/61
[2017-09-12 20:00] VITALS: BP 142/64
[2017-09-13] VITALS: BP 127/47
[2017-09-13 04:00] VITALS: BP 159/84
[2017-09-13 05:59] LABS: BASO # 0.1 10*3/uL (0.0-0.1); BASO % 0.3 % (0.0-1.0); EOS # 0.3 10*3/uL (0.0-0.4); EOS % 1.9 % (1.0-4.0); HEMATOCRIT 43.2 % (42.0-52.0); HEMOGLOBIN 14.3 g/dl (14.0-18.0); LYMPH # 2.4 10*3/uL (1.3-4.4); MEAN CELL VOLUME 88.7 fl (80.0-94.0); MEAN CORPUSCULAR HGB 29.4 pg (27.0-31.0); MEAN CORPUSCULAR HGB CONC 33.1 g/dl (33.0-37.0); MEAN PLATELET VOLUME 10.3 fl (9.6-12.3); MONO # 1.4 10*3/uL (0.1-1.0); MONO % 7.9 % (3.0-9.0); NEUT # 12.9 10*3/uL (2.3-7.9); PLATELET COUNT AUTOMATED 445 10*3/uL (130-400); RED BLOOD COUNT 4.87 10*6/uL (4.50-5.90); RED CELL DISTRI WIDTH 13.2 % (0-14.5); WHITE BLOOD COUNT 17.2 10*3/uL (4.8-10.8)
[2017-09-13 06:11] LABS: BUN 36 mg/dl (7-24); CHLORIDE 102 mmol/L (98-107); SODIUM 140 mmol/L (136-145)
[2017-09-13 06:17] LABS: INTERNATIONAL NORM RATIO 3.5 (2.0-3.5)
[2017-09-13 08:00] VITALS: BP 148/52
[2017-09-13 12:00] VITALS: BP 152/68
[2017-09-13 16:00] VITALS: BP 151/69
[2017-09-13 20:00] VITALS: BP 124/46
[2017-09-14] VITALS: BP 165/68
[2017-09-14 04:00] VITALS: BP 149/71
[2017-09-14 06:19] LABS: BASO # 0.1 10*3/uL (0.0-0.1); BASO % 0.3 % (0.0-1.0); EOS # 0.5 10*3/uL (0.0-0.4); EOS % 3.2 % (1.0-4.0); HEMATOCRIT 43.1 % (42.0-52.0); HEMOGLOBIN 14.6 g/dl (14.0-18.0); LYMPH # 2.8 10*3/uL (1.3-4.4); MEAN CELL VOLUME 87.6 fl (80.0-94.0); MEAN CORPUSCULAR HGB 29.7 pg (27.0-31.0); MEAN CORPUSCULAR HGB CONC 33.9 g/dl (33.0-37.0); MEAN PLATELET VOLUME 10.3 fl (9.6-12.3); MONO # 1.3 10*3/uL (0.1-1.0); NEUT # 11.6 10*3/uL (2.3-7.9); NEUT % 70.6 % (47.0-73.0); PLATELET COUNT AUTOMATED 421 10*3/uL (130-400); RED BLOOD COUNT 4.92 10*6/uL (4.50-5.90); RED CELL DISTRI WIDTH 13.1 % (0-14.5); WHITE BLOOD COUNT 16.5 10*3/uL (4.8-10.8)
[2017-09-14 06:26] LABS: BUN 33 mg/dl (7-24); CHLORIDE 98 mmol/L (98-107); POTASSIUM 3.8 mmol/L (3.5-5.1); SODIUM 138 mmol/L (136-145)
[2017-09-14 06:41] LABS: INTERNATIONAL NORM RATIO 2.6 (2.0-3.5)
[2017-09-14 08:00] VITALS: BP 151/74
[2017-09-14 12:00] VITALS: BP 142/64
[2017-09-14 16:00] VITALS: BP 127/46
[2017-09-14 20:00] VITALS: BP 141/60
[2017-09-15] VITALS (10 sets, daily range): BP systolic 112–140; BP diastolic 43–80
[2017-09-16] VITALS: BP 108/62
[2017-09-16 02:04] LABS: ADENOVIRUS Negative (Negative); INFLUENZA A Negative (Negative); INFLUENZA B Positive (Negative); METAPNEUMOVIRUS Negative (Negative); PARAINFLUENZA 1 Negative (Negative); PARAINFLUENZA 2 Negative (Negative); PARAINFLUENZA 3 Negative (Negative); RHINOVIRUS Negative (Negative); RSV A Negative (Negative); RSV B Negative (Negative)
[2017-09-16 06:24] LABS: BASO # 0.1 10*3/uL (0.0-0.1); BASO % 0.3 % (0.0-1.0); EOS # 0.5 10*3/uL (0.0-0.4); EOS % 2.8 % (1.0-4.0); HEMATOCRIT 44.8 % (42.0-52.0); HEMOGLOBIN 14.6 g/dl (14.0-18.0); LYMPH # 2.6 10*3/uL (1.3-4.4); LYMPH % 13.6 % (27.0-41.0); MEAN CELL VOLUME 90.1 fl (80.0-94.0); MEAN CORPUSCULAR HGB 29.4 pg (27.0-31.0); MEAN CORPUSCULAR HGB CONC 32.6 g/dl (33.0-37.0); MEAN PLATELET VOLUME 9.7 fl (9.6-12.3); MONO # 1.3 10*3/uL (0.1-1.0); MONO % 6.4 % (3.0-9.0); NEUT # 14.7 10*3/uL (2.3-7.9); NEUT % 75.8 % (47.0-73.0); PLATELET COUNT AUTOMATED 384 10*3/uL (130-400); RED BLOOD COUNT 4.97 10*6/uL (4.50-5.90); RED CELL DISTRI WIDTH 12.9 % (0-14.5); WHITE BLOOD COUNT 19.4 10*3/uL (4.8-10.8)
[2017-09-16 07:03] LABS: INTERNATIONAL NORM RATIO 1.6 (2.0-3.5)
[2017-09-16 08:00] VITALS: BP 118/54
[2017-09-16 12:00] VITALS: BP 109/73
[2017-09-16 15:08] LABS: ACID FAST SPEC PROCESSING Concentration (.)
[2017-09-16 16:00] VITALS: BP 121/45
[2017-09-16 20:00] VITALS: BP 132/84
[2017-09-17] VITALS: BP 159/72
[2017-09-17 07:53] LABS: INTERNATIONAL NORM RATIO 1.4 (2.0-3.5)
[2017-09-17 08:00] VITALS: BP 138/74
[2017-09-17] MEDS ORDERED: LEVAQUIN750 M1 PO (10:39)
== END 2017-09-17 12:53 | disposition other institution (70) | DRG 871 ==
LOC: ED 11:41 → 5E 13:03 → EDHOLD 13:03 → ICCU 13:03 → 5E 09-15 15:57
PROVIDERS: Emergency Medicine; Internal Medicine; Internal Medicine Critical Care Medicine
PROC: BD1BYZZ Fluoroscopy of Mouth/Oropharynx using Other Contrast (ICD-10-PCS; principal; 2017-09-11)
PROC: 0BC18ZZ Extirpation of Matter from Trachea, Via Natural or Artificial Opening Endoscopic (ICD-10-PCS; 2017-09-15)
PROC: 0BC98ZZ Extirpation of Matter from Lingula Bronchus, Via Natural or Artificial Opening Endoscopic (ICD-10-PCS; 2017-09-15)
PROC: 0BC48ZZ Extirpation of Matter from Right Upper Lobe Bronchus, Via Natural or Artificial Opening Endoscopic (ICD-10-PCS; 2017-09-15)
PROC: 0BC88ZZ Extirpation of Matter from Left Upper Lobe Bronchus, Via Natural or Artificial Opening Endoscopic (ICD-10-PCS; 2017-09-15)
PROC: 0BC58ZZ Extirpation of Matter from Right Middle Lobe Bronchus, Via Natural or Artificial Opening Endoscopic (ICD-10-PCS; 2017-09-15)
PROC: 0BC38ZZ Extirpation of Matter from Right Main Bronchus, Via Natural or Artificial Opening Endoscopic (ICD-10-PCS; 2017-09-15)
PROC: 0BC78ZZ Extirpation of Matter from Left Main Bronchus, Via Natural or Artificial Opening Endoscopic (ICD-10-PCS; 2017-09-15)
PROC: 0BC68ZZ Extirpation of Matter from Right Lower Lobe Bronchus, Via Natural or Artificial Opening Endoscopic (ICD-10-PCS; 2017-09-15)
PROC: 0BCB8ZZ Extirpation of Matter from Left Lower Lobe Bronchus, Via Natural or Artificial Opening Endoscopic (ICD-10-PCS; 2017-09-15)
DX: A41.9 Sepsis, unspecified organism (principal); J96.21 Acute and chronic respiratory failure with hypoxia; J10.08 Influenza due to other identified influenza virus with other specified pneumonia; N17.9 Acute kidney failure, unspecified; T17.490A Other foreign object in trachea causing asphyxiation, initial encounter; J18.1 Lobar pneumonia, unspecified organism; D68.9 Coagulation defect, unspecified; E11.649 Type 2 diabetes mellitus with hypoglycemia without coma; T17.590A Other foreign object in bronchus causing asphyxiation, initial encounter; J44.0 Chronic obstructive pulmonary disease with (acute) lower respiratory infection; J44.1 Chronic obstructive pulmonary disease with (acute) exacerbation; E87.2 Acidosis; I11.0 Hypertensive heart disease with heart failure; I50.9 Heart failure, unspecified; D75.1 Secondary polycythemia; I48.2 Chronic atrial fibrillation; R13.12 Dysphagia, oropharyngeal phase; J20.9 Acute bronchitis, unspecified; I25.10 Atherosclerotic heart disease of native coronary artery without angina pectoris; E78.2 Mixed hyperlipidemia; E55.9 Vitamin D deficiency, unspecified; R62.7 Adult failure to thrive; X58.XXXA Exposure to other specified factors, initial encounter; R65.20 Severe sepsis without septic shock; T45.515A Adverse effect of anticoagulants, initial encounter; E87.6 Hypokalemia; Z79.4 Long term (current) use of insulin; Z79.01 Long term (current) use of anticoagulants; Z95.1 Presence of aortocoronary bypass graft; Z79.899 Other long term (current) drug therapy; Z83.3 Family history of diabetes mellitus; Z82.3 Family history of stroke; Z82.49 Family history of ischemic heart disease and other diseases of the circulatory system; Y92.89 Other specified places as the place of occurrence of the external cause; Y93.89 Activity, other specified; Y99.8 Other external cause status

== ENCOUNTER 2017-09-22 12:50 | Inpatient (IN) | payer MEDICARE, OTHER ==
[~2017-09-22] VITALS: Ht 177.8 cm; Wt 64.5 kg
--- NOTE | ~2017-09-22 | WRIGHTHP ---
[place], [place] PATIENT HISTORY AND PHYSICAL EXAM NAME: [facility]OR [id number] UNIT #: [id number] ROOM: 422 DOCTOR: KARL YAP MD BIRTHDATE: [birth year] DOS: 09/22/2017 HISTORY OF PRESENT ILLNESS: The patient is an 81-year-old gentleman recently discharged from [facility] after being treated for: 1. Large lingular pneumonia and acute exacerbation of COPD along with sepsis. 2. History of coronary artery disease of [place] vessels. 3. Chronic atrial fibrillation. 4. Adult failure to thrive and generalized weakness with old age. 5. Mixed hyperlipidemia. 6. Benign essential hypertension. 7. Type 2 diabetes mellitus. 8. 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 9. Vitamin D deficiency. The patient was admitted after treatment for pneumonia and sepsis along with tachycardia and leukocytosis. The patient was doing well at the long-term, but then his condition declined as he was not eating enough, appeared to get dehydrated, lethargic and very weak and was sent to the Emergency Department for increased weakness, decreased mobility and alertness. The patient was found to be acutely dehydrated in acute renal failure in the Emergency Department and recommended for admission and further management. The patient was started on hydration with IV fluids, considered to be septic again. The patient was hypoglycemic, generalized weakness and dehydration. No chest pain, shortness of breath, no GI or urinary symptoms. REVIEW OF SYSTEMS: LUNGS: No increasing shortness of breath. GASTROINTESTINAL: No nausea, vomiting, diarrhea, or constipation. CARDIOVASCULAR: No chest pains or palpitations. FAMILY HISTORY: Noncontributory. HOME MEDICATIONS: Before the admission were lisinopril, metformin, digoxin, Coreg, insulin, Levaquin and Eliquis. PHYSICAL EXAMINATION: GENERAL: Alert, oriented x 3, very weak, in no visible distress. Generalized weakness. VITAL SIGNS: Blood pressure 112/48, heart rate 89 beats per minute, breathing 18 times per minute, afebrile. HEENT AND NECK: Extraocular movements are intact. Sclerae are anicteric. Oral mucosa is moist and clean. No obvious facial weakness. Neck is supple without any lymphadenopathy. No thyromegaly. No JVD. No carotid arterial bruits. LUNGS: Some rhonchi in the right lung which are scattered. CARDIOVASCULAR SYSTEM: Heart rate is regular in rate and rhythm. S1 and S2 normally audible. No significant murmur or any other abnormal cardiac sounds. ABDOMEN: Soft, nontender. No obvious organomegaly. Bowel sounds are present. No obvious herniation. [place], [place] PATIENT HISTORY AND PHYSICAL EXAM NAME: GIOVANNI TAYLOR UNIT #: [id number] ROOM: 422 DOCTOR: KARL YAP MD BIRTHDATE: [birth year] EXTREMITIES: 1-2+ leg and pedal edema. CENTRAL NERVOUS SYSTEM: Alert and oriented x 3. Cranial nerves II-XII are intact. Speech is normal. The patient is able to move all extremities. Normal muscle strength. Deep tendon reflexes are equal on both sides. Plantars were downgoing. IMPRESSION: 1. The patient presenting with acute hypotension, acute kidney failure related to hypotension, generalized weakness, altered mental status, hypoglycemia, lethargy, all are improving with hydration with normal saline. I will encourage nutrition, given nutritional supplements, appetite stimulants hydration with IV fluids and monitor his sugars. Apparently after discharge, he did very well for a few days at long-term, but he was not eating enough, so he became depleted, dehydrated and went into acute kidney failure along with hypoglycemia because he is a diabetic and he was still taking diabetic medicines and insulin. 2. Type 2 diabetes mellitus with hypoglycemia from not eating enough and being treated for diabetes. The patient's insulin was stopped and he has been put on a sliding scale and he will be encouraged to eat along with nutritional supplements for diabetics. 3. Acute kidney failure related to hypotension, dehydration and not eating enough. The patient not to be kept on any diuretics and hydrated slowly with normal saline. 4. Hypotension. Again, from the above-mentioned reasons, being treated with normal saline. The patient's blood pressure medications have been stopped. Kidney function and blood pressure readings are being monitored closely. The patient remains in the intermediate monitored bed [facility]. 5. Sepsis is being considered because of hypotension, acute kidney failure, hypoglycemia and lethargy. The patient continued on antibiotics. Blood counts to be monitored. 6. Acute hypoglycemia with blood sugar of 48, treated with hydration and blood sugars are being monitored. Generally, the patient has diabetes mellitus has been uncontrolled with a hemoglobin A1c of 8.9. 7. Lactic acid elevation to 3.2 has returned to normal with hydration with normal saline. 8. Chronic atrial fibrillation. The patient anticoagulated with apixaban. 9. Coronary artery disease of [place] vessels without any angina symptoms. 10. Centrilobular emphysema, treated with bronchodilators. [place], [place] PATIENT HISTORY AND PHYSICAL EXAM NAME: GIOVANNI TAYLOR UNIT #: [id number] ROOM: [facility] DOCTOR: KARL YAP MD BIRTHDATE: [birth year] KARL YAP MD CM:HISPHYS:PATIENT HISTORY AND PHYSICAL EXAMINATION [id number] KARL YAP MD 09/23/17 0926 interface
--- NOTE | ~2017-09-22 | PR ---
[place], [place] PROGRESS NOTE NAME: GIOVANNI TAYLOR UNIT #: [id number] ROOM: 420 DOCTOR: DESTINI PARK CRNA BIRTHDATE: [birth year] DOS: INTUBATION NOTE Called for a code blue, cardiac arrest situation. On arrival to the room, patient found to be in cardiac arrest with adequate chest compressions in progress. The patient being ventilated with 100% oxygen via Ambu bag by Jon Still CRNA and respiratory therapist. Decision made by Dr. Lilly to intubate the patient. Attempt x [address] Lilly with 2 Wahl blade was unsuccessful. Attempted by ____ 2 Wahl blade patient with a ____ grade 4 view. Intubating bougie placed with tactile confirmation of placement in trachea, intubated with an 8 mm ET tube over the intubating bougie. Bougie withdrawn. The patient with positive bilateral breath sounds. Placement confirmed by end-tidal CO2 with colorimetric device. The patient tolerated procedure well. DESTINI PAKR CRNA CM:PNTRANS [id number] DESTINI PARK CRNA 09/28/17 0032 interface
--- NOTE | ~2017-09-22 | DS ---
[place], [place] DISCHARGE SUMMARY [id number] UN[facility] #: [id number] ROOM: 420 DOCTOR: KARL YAP MD BIRTHDATE: [birth year] DOS: 09/27/2017 DISCHARGE DIAGNOSES: 1. The patient with 2 episodes of cardiac arrest and the patient when he was made comfort care. 2. Advanced adult failure to thrive and generalized weakness and ambulatory dysfunction. 3. Swallowing dysfunction. The patient was high risk for aspiration. 4. Acute over chronic kidney failure, made worse with cardiac arrest. 5. Type 2 diabetes mellitus. 6. Chronic atrial fibrillation with rapid ventricular response. 7. Centrilobular emphysema. 8. .Acute respiratory failure with cardiac arrest, which required intubation and mechanical ventilation. 9. Vitamin D deficiency. 10. Coronary artery disease of the [place] vessels, with coronary artery bypass grafts. 11. Benign essential hypertension. 12. Mixed hyperlipidemia. 13. Recent large lingular pneumonia, resolved. HOSPITAL COURSE: The patient was admitted with complaints of tachycardia and leukocytosis. The patient had earlier been treated for large lingular pneumonia. The patient was doing well for a few days at long-term and then his condition started declining and he was not eating enough, getting dehydrated and lethargic and very weak. The patient was reevaluated in the Emergency Department for increased weakness, decreased mobility and alertness. The patient was found to be acutely dehydrated and in acute kidney failure in the Emergency Department and after receiving intravenous fluids for hydration, he was considered to be septic again. The patient was also found to be hypoglycemic with generalized weakness and dehydration and was started on hydration with IV fluids. During the stay at the hospital, the patient developed pulseless electrical activity and required resuscitation and this was followed by intubation and mechanical ventilation. The patient was finally extubated the next day and he was improving again, although he was anuric and later on started producing little dark urine. The patient was treated with antibiotics, oxygen, bronchodilators. A code status discussion was held with the patient's and daughter on multiple occasions and finally they decided to just keep him comfortable only and later on with the second cardiac arrest, they decided not to proceed with any resuscitation efforts. Dysphagia and swallowing dysfunction. The patient was found to be retaining food in his mouth and later on it could be aspirated. NPO was recommended, but PEG tube insertion was discussed with patient's and daughter and they refused PEG tube feedings and instead allowed comfort feedings only. The patient was suspected to have developed aspiration pneumonia, although chest x-ray from procurement engineer he showed no acute infiltrates. [place], [place] DISCHARGE SUMMARY NAME: GIOVANNI TAYLOR UNIT #: [id number] ROOM: 420 DOCTOR: KARL YAP MD BIRTHDATE: [birth year] Mixed hyperlipidemia, was being followed and treated. Benign essential hypertension. Blood pressures were being monitored and controlled. Type 2 diabetes mellitus. Blood sugars were monitored and treated. Chronic atrial fibrillation, for which he was anticoagulated with apixaban. History of coronary artery disease of [place] vessels with coronary artery bypass grafts and drug-eluting stent placement, for which patient was continued on aspirin and Plavix. The patient's medications were metformin, lisinopril, digoxin, Coreg, insulin, Levaquin, Eliquis. The patient's medications were dextrose, Levaquin, normal saline, Eliquis, sliding scale of regular insulin, Lanoxin, Coreg. KARL YAP MD CM:CHERY [id number] KARL YAP MD 09/30/17 2130 interface
--- NOTE | ~2017-09-22 | PROC NOTE ---
[place], [place] PROCEDURE NOTE [facility]: [id number] UNIT #: [id number] ROOM: 422 DOCTOR: MAKENNA RIGGS BIRTHDATE: [birth year] DOS: 09/25/2017 MODIFIED BARIUM SWALLOW LOCATION: [facility], room 422, bed 1. ORDERING PHYSICIAN: Dr. Mcmanus. RADIOLOGIST: Dr. Yanez. BACKGROUND INFORMATION: The patient is an 81-year-old male who was seen for modified barium swallow. This test was ordered to rule out aspiration and determine most appropriate means of nutrition following this morning's clinical evaluation where patient exhibited signs and symptoms of aspiration and difficulty with swallowing. The patient is known to this department. He was seen during prior admission a couple of weeks ago. During that prior admission, a modified barium swallow was conducted 09/12/2017. At that time, the patient exhibited a [id number] oropharyngeal dysphagia. He was recommended a soft diet and nectar thick liquid. At this time, the patient is ordered a pureed diet and honey-thick liquid. The patient was admitted to this hospital again 09/22/2017 with acute kidney injury, hypoglycemia and generalized weakness. Reports indicate the patient had been exhibiting poor appetite. Further medical history includes hypertension, IDDM, IA, hyperlipidemia, pneumonia, AFib with RVR and CABG. For today's assessment, the patient was alert and able to follow commands. Generalized weakness was displayed. The patient was fatigued. Respiratory status was within normal limits. Oral peripheral examination revealed presence of bottom denture only. Lingual and labial skills were within functional limits in terms of strength, range of motion, and coordination. Volitional cough was adequate in strength, but congested. Volitional swallow was severely delayed. METHODS AND MATERIALS USED FOR THE EXAM: The patient was positioned in the lateral plane and the exam was viewed under fluoroscopy. The patient was presented with a variety of consistencies to assess swallowing skills including applesauce mixed with barium presented in half teaspoon amounts and nectar thick barium taken by cup in single sip size amounts. ORAL PHASE: The patient achieved adequate labial seal around the cup with no anterior loss. Bolus formation was adequate. Oral transit was poor. Tongue to posterior pharyngeal wall contact was poor. Velar functioning was within normal limits with no nasal regurgitation. PHARYNGEAL PHASE: The pharyngeal swallow was moderate to severely delayed with all consistencies. His swallow was weak in general. Laryngeal elevation was reduced. Epiglottic function was reduced as well. Penetration during the swallow occurred with pureed consistency. Following the swallow, patient exhibited pooling in the vallecula and pyriform. The patient was not aware of this and made no attempt to independently clear the residue. Strategies were attempted in order to clear the residue such as subsequent swallow, effortful swallow and chin tuck. These were not effective in clearing the residue in the [place], [place] PROCEDURE NOTE NAME: GIOVANNI TAYLOR UNIT #: [id number] ROOM: [facility] DOCTOR: MAKENNA RIGGS BIRTHDATE: [birth year] pharynx. Due to the buildup of residue in the pharynx, penetration after the swallow did occur with pureed and nectar thick liquids. Due to these results, no other consistencies were attempted. ESOPHAGEAL PHASE: This phase of the swallow was not formally assessed during this exam. IMPRESSIONS AND RECOMMENDATIONS: Based upon assessment results, this 81-year-old patient presents with a severe oropharyngeal dysphagia. Recommend n.p.o. status, followup therapy is recommended focusing on indirect treatment tasks to work towards improvement of swallowing skills. The patient is permitted ice chips when taken in small amounts in an upright position. Results and recommendations were shared with the patient and his nurse and they verbalized understanding. Thank you very much for this referral. Should you have any questions regarding this patient, contact the speech pathologist at [phone]. MAKENNA RIGGS CM:PROCNOTE:PROCEDURE NOTE [id number] MAKENNA RIGGS
--- NOTE | ~2017-09-22 | PR ---
[place], [place] PROGRESS NOTE NAME: GIOVANNI TAYLOR UNIT #: [id number] ROOM: 420 DOCTOR: NOY VELÁSQUEZ MD BIRTHDATE: [birth year] DOS: 09/27/2017 SUBJECTIVE: The patient was seen at his bedside today with and daughter in attendance. He is awake and alert. He tolerated extubation. He is speaking, but does not make a lot of sense. He did ask me if he could eat. His family understands that he is aspirating and that this is what caused his cardiorespiratory arrest yesterday. His chart is listed a DNRCC-Arrest; however, at this time, he has no enteral access safe. I think that the family will need to make more decisions regarding his DNR status in the near future. As of this moment; however, he is completely n.p.o. His echocardiogram this admission did show left ventricular dysfunction with an estimated ejection fraction between 35 and 40%. The apex and lateral wall were hypokinetic. The left atrium was moderately dilated with moderate mitral insufficiency. PHYSICAL EXAMINATION: GENERAL: He is an elderly, slender, white male who is awake and alert. VITAL SIGNS: Pulse is 140 and irregularly irregular. Blood pressure is 116/42. He is afebrile. NECK: Supple. He has no jugular distention. Carotids are full. LUNGS: Respirations are unlabored. He has coarse breath sounds at the bases. He has no presacral edema. HEART: Has an irregularly irregular rapid rhythm. Heart tones are distant. There are no obvious murmurs. ABDOMEN: Soft and normally active. EXTREMITIES: Showed no edema. PLAN: For now, we will give him digoxin by IV to slow his rate. Unless the family does decide to place a feeding tube, I think that we should strongly consider asking them for a comfort care status. I thank Dr. Mcmanus for asking our advice regarding the patient's care. [place], [place] PROGRESS NOTE NAME: GIOVANNI TAYLOR UNIT #: [id number] ROOM: 420 DOCTOR: NOY VELÁSQUEZ MD BIRTHDATE: [birth year] NOY VELÁSQUEZ MD CM:PNTRANS [id number] NOY VELÁSQUEZ MD 09/30/17 1406 interface
--- NOTE | ~2017-09-22 | PR ---
[place], [place] PROGRESS NOTE NAME: [id number] UNIT #: [id number] ROOM: 422 DOCTOR: KARL YAP MD BIRTHDATE: [birth year] DOS: SUBJECTIVE: The patient is starting to feel better, although he is slow with eating and has to think a lot before he swallows. The patient's daughter is here from out of town and would like to stay with him and take him home rather than transferring him to a nursing facility for rehabilitation. OBJECTIVE: VITAL SIGNS: Blood pressure 136/63, heart rate of 73 beats per minute, breathing wound being 18 times per minute, temperature 98.4 degrees Fahrenheit. GENERAL APPEARANCE: The patient is alert and oriented x 3, in no visible distress, except for generalized weakness. HEENT AND NECK: Exam within normal limits. CARDIOVASCULAR SYSTEM: Heart rate is regular in rate and rhythm. S1 and S2 normally audible. LUNGS: Clear to auscultation. ABDOMEN: Soft, nontender. No obvious organomegaly. Bowel sounds are present. EXTREMITIES: Without significant cyanosis or edema. IMPRESSION: 1. The patient with poor appetite, starting to eat a little. Apparently the poor appetite, eating and drinking less led him to into kidney failure and increased weakness and landed him back at the hospital. The patient is on appetite stimulants and be encouraged to eat. 2. Type 2 diabetes mellitus with hypoglycemia from patient not eating enough and being treated for diabetes mellitus. The patient is on nutritional supplements and also being encouraged to eat along with appetite stimulation. When patient starts eating better, he can be discharged to home and to be followed by his daughter and visiting nurses. 3. Acute kidney failure from dehydration and not eating and drinking well. BUN and creatinine improving with hydration with normal saline. No signs of acute heart failure at this time. 4. Hypotension, resolved with hydration with normal saline. 5. Hypotension, acute kidney failure, hypoglycemia, lethargy, all improved with treatment. The patient was suspected to have sepsis and Infectious Disease specialists are following him.. 6. Elevation of lactic acid level to 3.2 at admission has normalized with hydration and treatment with antibiotics. 7. Chronic atrial fibrillation, with controlled heart rates. The patient anticoagulated with apixaban. 8. Coronary artery disease of the [place] vessels, without chest pain. 9. Central lobular emphysema, treated with bronchodilators. The patient is not complaining for increased shortness of breath. 10. Adult failure to thrive and advanced weakness and disability. The patient will continue physical therapy. One hour spent in patient's management today including discussion with his daughter. [place], [place] PROGRESS NOTE NAME: GIOVANNI TAYLOR UNIT #: [id number] ROOM: 422 DOCTOR: KARL YAP MD BIRTHDATE: [birth year] KARL YAP MD CM:RASHMI [id number] KARL YAP MD 09/24/171930 interface
--- NOTE | ~2017-09-22 | CON ---
[place], [place] REPORT OF CONSULTATION NAME: GIOVANNI TAYLOR UNIT #: [id number] ROOM: 420 DOCTOR: JHONNY TABOR MD BIRTHDATE: [birth year] DOS: 09/27/2017 PULMONARY CONSULTATION EVALUATION CONSULTATION REQUESTED BY: Dr. Mcmanus. REASON FOR CONSULTATION: Assess the patient's current acute respiratory failure with acute pneumonia and others. HISTORY OF PRESENT ILLNESS: This is an 81-year-old white male patient who had been recently treated and discharged for the medical management of acute pneumonia with exacerbation of chronic obstructive pulmonary disease and other. The patient has therapeutic bronchoscopy done as well. He has been admitted to the hospital and was brought to the Emergency Room as the patient was noted with symptoms of increased shortness of breath, which was present in the skilled nursing as well as significant decreased oral intake with severe fatigue and weakness. The patient has been noted progressive deterioration of respiratory status, requiring intubation of mechanical ventilation for the respiratory support. He was also noted progressive hypertension with a diagnosis of acute severe sepsis was also established and the patient was given intervenous fluids and also noted decreased urinary output. The patient was started on vasopressor therapy as well. Later on after a few hours of admission to the hospital, family member changes code status for the patient to DNR comfort care and no further resuscitative measures to be done. The patient was not started on Levophed and his care was done as comfort care. The patient self-extubated himself early this morning and remains on the oxygen supplementation initially 100% nonrebreather mask later on the oxygen supplementation with nasal cannula. He had been noted awake, unable to have verbal communication for accurate understanding of medical illnesses. He has been noted with chest congestion and coughing at the time of the assessment. He was noted without any significant tachypnea or respiratory distress at this time. REVIEW OF SYSTEMS: Cannot be effectively performed for this patient. PAST MEDICAL HISTORY: Continue documented and review of the current medical record documentation as well as my previous recent assessment for this patient in 08/2017 consultation. Please refer to the past history for this patient, past medical history, surgical history, social history, and family history to the consultation date for this patient of 09/12/2017 document which is available for reference. In addition to that, the patient had fiberoptic bronchoscopy that was done on 09/15/2017. MEDICATIONS: The current administered medication noted use of Protonix, DuoNeb, IV vancomycin, meropenem and Zithromax and other medications. DRUG ALLERGY HISTORY: The patient noted as no known drug allergies. PHYSICAL EXAMINATION: GENERAL: An 81-year-old elderly male who has been noted currently comfortable without any acute distress, oxygen supplementation is nasal cannula. Height of [place], [place] REPORT OF CONSULTATION NAME: GIOVANNI TAYLOR UNIT #: [id number] ROOM: [facility] DOCTOR: YVETTE MAI MD,JHONNY BIRTHDATE: [birth year] 5 feet 10 inches, weight of 142, BMI 20. VITAL SIGNS: For the patient noted normal temperature, respiratory rate 16-20, heart rate of 108-92, blood pressure 107/66, lowest blood pressure 77/38. Pulse oxygen saturation of the patient noted on 40% oxygen supplementation as 98% saturation. HEENT: Head was atraumatic. Eyes nonicterus. NECK: Supple. CARDIOVASCULAR: S1, S2 is audible. LUNGS: The patient with crackles of the lung noted with scattered expiratory wheezing bilaterally. ABDOMEN: Soft, flat, nontender. Bowel sounds present. EXTREMITIES: The patient was noted without any acute edema. MUSCULOSKELETAL: The patient was noted without any acute deformities. Loss of muscle mass was noted, which is a chronic finding. SKIN: Visible skin: No lesions or rashes. CENTRAL NERVOUS SYSTEM: The patient has limited examination. Does not appear to have acute focal neurologic deficit. LABORATORY DATA: Arterial blood gas that was done yesterday, pH of 7.38, pCO2 of 28, pO2 of 383 on 100% oxygen supplementation. After the intubation of mechanical ventilation, arterial blood gas prior to that pH of 7.22, pCO2 of 39, pO2 of 155 and other blood gas repeated later for the patient with 50% oxygen supplementation. In the afternoon, pH of 7.36, pCO2 of 25, PO2 of 158. CMP of the patient that was done on 09/26/2017, BUN 28, creatinine 1.49, glucose 281. Digoxin level noted 1.09. CBC of the patient on 09/26/2017, the patient's WBC count 16.6, hemoglobin 13, hematocrit 41.8, platelet count was normal. The lactic acid noted elevation up to 3.2 later on 2.5. The troponin was also elevated yesterday 1.80, later on 1.28 yesterday as well. PTT was noted as therapeutic 66.7 today. Endotracheal aspirate, moderate growth of yeast from yesterday with many white blood cell, a few budding yeast, a few gram-positive bacilli. The urine culture noted no bacterial growth. Another sputum culture previously noted with moderate growth of yeast isolation from the first of this month. CBC this morning, WBC count 19.7, hemoglobin 11.2, hematocrit 35.1, platelet count 288,000. CMP of the patient, BUN 43, creatinine 1.69. IMAGING: The patient's chest x-ray reviewed, which was done pertinent to current consultation. Chest x-ray, which was done yesterday with the patient intubated endotracheal tube was noted high riding with hyperinflation of the lung, patchy infiltration noted in the right perihilar area. Chest x-ray repeated later after adjustment of the endotracheal tube partially done was noted with similar infiltration in the right perihilar area. The chest x-ray that was done this morning was noted with cardiomegaly, mild right basilar vascular congestion as well. IMPRESSION: 1. The patient has been currently admitted to the hospital and noted severe acute sepsis and developed acute pneumonia, hospital-associated infection is the main sole cause. 2. Possibility of non-ST segment elevation myocardial infarction would be considered as well. [place], [place] REPORT OF CONSULTATION NAME: GIOVANNI TAYLOR UNIT #: [id number] ROOM: 420 DOCTOR[facility] BIR[facility] [birth year] 3. The patient with protein-calorie malnutrition as well as advanced age. 4. Acute change secondary to current acute sepsis, acute tubular necrosis with hypotension as well. PLAN OF MANAGEMENT: At this time, the patient will be treated with the current antibiotics with intravenous meropenem and vancomycin for current acute pneumonia. Monitoring the culture of the blood and the endotracheal aspirate further deescalating antibiotic uses. The Zithromax has been discontinued, Peridex rinse and the IV Protonix part of the ventilator bundle management was discontinued as the patient already extubated himself. The patient could be transferred to the medical floor as well with the palliative care. Other additional treatment changes to be made gradually upon changes in his overall medical condition. JHONNY CRAWFORD MD CM:CONSTR:REPORT OF CONSULTATION 2057 09/28/17 0345 interface
--- NOTE | ~2017-09-22 | PR ---
[place], [place] PROGRESS NOTE NAME: GIOVANNI TAYLOR UNIT #: [id number] ROOM: 420 DOCTOR: KARL YAP MD BIRTHDATE: [birth year] DOS: 09/27/2017 SUBJECTIVE: The patient is very weak, somewhat confused. OBJECTIVE: VITAL SIGNS: Blood pressure 124/69, heart rate of 108 beats per minute, breathing 20 times per minute and temperature 97.5 degrees Fahrenheit. GENERAL APPEARANCE: Generalized weakness and mental confusion. HEENT AND NECK: Exam within normal limits. CARDIOVASCULAR SYSTEM: Heart rate is regular in rate and rhythm. S1 and S2 normally audible. LUNGS: Clear to auscultation. ABDOMEN: Soft, nontender. No obvious organomegaly. Bowel sounds are present. EXTREMITIES: Without significant cyanosis or edema. IMPRESSION AND PLAN: 1. Advanced adult failure to thrive with poor prognosis. He is awake, alert, but pleasantly confused and very weak. 2. Swallowing dysfunction with high risk for aspiration. The patient was kept n.p.o., but the patient's and his power of divorce attorney has decided against PEG tube placement, so the patient will be kept on comfort feeding for end-of-life care. 3. Acute over chronic kidney failure with the patient going into cardiac arrest yesterday. Serum electrolytes are being monitored and BUN and creatinine was 43 and 1.6 today. His urine is very concentrated and dark. 4. Severe leukocytosis to be monitored. 5. Type 2 diabetes mellitus. Blood sugars being monitored and treated. 6. Chronic atrial fibrillation with rapid ventricular response. The patient is anticoagulated with apixaban. 7. Centrilobular emphysema with chronic shortness of breath. The patient remained on bronchodilators. 8. Acute respiratory failure with intubation and mechanical oriented ventilation. The patient is off ventilator now and moved to a step-down unit. 9. The patient's prognosis remains guarded. [place], [place] PROGRESS NOTE NAME: GIOVANNI TAYLOR UNIT #: [id number] ROOM: 420 DOCTOR: KARL YAP MD BIRTHDATE: [birth year] KARL YAP MD CM:RASHMI [id number] KARL YAP MD 09/27/170 interface
--- NOTE | ~2017-09-22 | PR ---
[place], [place] PROGRESS NOTE NAME: GIOVANNI TAYLOR UNIT #: [id number] ROOM: [place] [address] DOCTOR: KARL YAP MD BIRTHDATE: [birth year] DOS: The patient, earlier today, developed pulseless electrical activity and a code blue had to be called and the patient was resuscitated with CPR and epinephrine. The patient was revived and he required intubation and mechanical ventilation and then he was placed in the ICU with hypotension. Since then, the patient has not been urinating. A Gordillo catheter is in place. The patient's family made him DNR comfort care arrest with no intubation and no intense treatment. The patient does open his eyes and move all his extremities, but he is being kept comfortable with sedation. Blood pressure 99/46, heart rate of 68 beats per minute, afebrile. Pulse ox staying from 93-100%. PHYSICAL EXAMINATION: GENERAL APPEARANCE: Generalized weakness and sedation. HEENT AND NECK: Exam within normal limits. CARDIOVASCULAR SYSTEM: Heart rate is regular in rate and rhythm. S1 and S2 normally audible. LUNGS: Clear to auscultation. ABDOMEN: Soft, nontender. No obvious organomegaly. Bowel sounds are present. EXTREMITIES: Without significant cyanosis or edema. IMPRESSION: The patient with episode of pulseless electrical activity revived with CPR and epinephrine, now remains hypotensive anuric although he does open his eyes to look around and move all his extremities. The patient remains intubated and on mechanical ventilation. Dr. Alvarado to follow. 1. Hypotension after cardiac arrest and pulseless electrical activity is being treated with hydration with normal saline boluses and blood pressure is improving. The patient anuric after the hypotensive episode and cardiac arrest. Gordillo catheter in place and urine output is being monitored. 2. Type 2 diabetes mellitus. Blood sugars is being monitored and treated. 3. Acute over chronic kidney disease from which the patient was recovering, but he has become anuric after the cardiac arrest. 4. Chronic atrial fibrillation with controlled heart rates. The patient anticoagulated with apixaban. 5. Centrilobular emphysema. The patient remains on bronchodilators presently intubated and on mechanical ventilation for respiratory arrest. 6. Overall, poor health and guarded prognosis. This has been discussed in detail with the patient's daughter again today. [place], [place] PROGRESS NOTE NAME: GIOVANNI TAYLOR UNIT #: [id number] ROOM: [place] [address] DOCTOR: KARL YAP MD BIRTHDATE: [birth year] KARL YAP MD CM:PNTRANS [id number] KARL YAP MD 09/26/172126 interface
--- NOTE | ~2017-09-22 | PR ---
[place], [place] PROGRESS NOTE NAME: GIOVANNI TAYLOR UNIT #: [id number] ROOM: 422 DOCTOR: KARL YAP MD BIRTHDATE: [birth year] DOS: 09/25/2017 SUBJECTIVE: The patient unable to swallow properly and had swallowing evaluation and was recommended n.p.o. The patient's and daughter have decided against PEG tube placement and agreed to comfort feeding. OBJECTIVE: VITAL SIGNS: Blood pressure 150/72, heart rate 75 beats per minute, breathing normally. GENERAL: Generalized weakness. HEENT AND NECK: Exam within normal limits. CARDIOVASCULAR SYSTEM: Heart rate is regular in rate and rhythm. S1 and S2 normally audible. LUNGS: Clear to auscultation. ABDOMEN: Soft, nontender. No obvious organomegaly. Bowel sounds are present. EXTREMITIES: Without significant cyanosis or edema. IMPRESSION: 1. The patient with advanced adult failure to thrive, working with Physical Therapy and is still very weak and declining slowly. The patient's family has agreed for comfort feeding and to [facility] and see if the patient would recover. 2. Malnutrition, poor appetite, severe protein calorie malnutrition. The patient is recommended n.p.o., but family does not want PEG tube placement for nutrition and they would allow comfort feeding as tolerated and the patient is able to drink liquids right now and is being kept on nutritional supplements. 3. Type 2 diabetes mellitus. Blood sugars are being monitored and treated. He was taken off insulin because he has not been eating that well and his blood sugars were dropping low. 4. Acute over chronic kidney failure related to dehydration and patient is unable to tolerate much fluids. The patient is being hydrated with normal saline. 5. Chronic atrial fibrillation, with controlled heart rate. The patient is anticoagulated with apixaban. 6. Coronary artery disease of the [place] vessels, without chest pains. 7. Centrilobular emphysema, treated with bronchodilators. Shortness of breath has improved. 8. The patient with poor prognosis, discussed with patient's and daughter today. [place], [place] PROGRESS NOTE NAME: GIOVANNI TAYLOR UNIT #: [id number] ROOM: 422 DOCTOR: KARL YAP MD BIRTHDATE: [birth year] KARL YAP MD CM:PNMADALYN [id number] KARL YAP MD 09/25/[id number] interface
[2017-09-22 12:50] VITALS: BP 129/56
[~2017-09-22 12:50] MED LIST changes: +LEVAQUIN750 M1 PO
[2017-09-22 13:23] LABS: BASO # 0.1 10*3/uL (0.0-0.1); BASO % 0.4 % (0.0-1.0); EOS # 0.3 10*3/uL (0.0-0.4); EOS % 1.8 % (1.0-4.0); HEMATOCRIT 41.6 % (42.0-52.0); HEMOGLOBIN 13.9 g/dl (14.0-18.0); LYMPH # 2.2 10*3/uL (1.3-4.4); LYMPH % 13.2 % (27.0-41.0); MEAN CELL VOLUME 88.5 fl (80.0-94.0); MEAN CORPUSCULAR HGB 29.6 pg (27.0-31.0); MEAN CORPUSCULAR HGB CONC 33.4 g/dl (33.0-37.0); MEAN PLATELET VOLUME 9.6 fl (9.6-12.3); MONO # 1.2 10*3/uL (0.1-1.0); MONO % 7.3 % (3.0-9.0); NEUT # 12.6 10*3/uL (2.3-7.9); NEUT % 76.8 % (47.0-73.0); PLATELET COUNT AUTOMATED 399 10*3/uL (130-400); RED CELL DISTRI WIDTH 13.5 % (0-14.5); WHITE BLOOD COUNT 16.4 10*3/uL (4.8-10.8)
[2017-09-22 13:31] LABS: ACT PARTIAL THROMBO TIME 35.6 SECONDS (20.8-31.5); INTERNATIONAL NORM RATIO 1.8 (2.0-3.5)
[2017-09-22 13:40] LABS: ALBUMIN 2.3 gm/dl (3.1-4.5); CREATININE 2.11 mg/dL (0.70-1.30); POTASSIUM 3.8 mmol/L (3.5-5.1); TOTAL PROTEIN 6.5 gm/dL (6.4-8.2)
[2017-09-22 13:41] LABS: TROPONIN I 0.024 ng/ml (<0.045)
[2017-09-22 13:48] VITALS: BP 118/58
[2017-09-22 13:57] LABS: BILIRUBIN NEGATIVE (NEGATIVE); BLOOD NEGATIVE (NEGATIVE); CLARITY SL CLOUDY (CLEAR); COLOR YELLOW (YELLOW); GLUCOSE NEGATIVE (NEGATIVE); KETONE NEGATIVE (NEGATIVE); LEUKO ESTERASE NEGATIVE (NEGATIVE); NITRITE NEGATIVE (NEGATIVE); UROBILINOGEN 0.2 E.U./dl (0.2-1.0)
[2017-09-22 14:05] LABS: BACTERIA 1+; EPITHELIAL CELLS 0-2; FINE GRANULAR CAST 0-2; RBC 0-2 rbc/hpf (0-2)
[2017-09-22 15:13] VITALS: BP 128/62
[2017-09-22 16:00] VITALS: BP 108/52
[2017-09-22] MEDS ORDERED: ELIQUIS2.5 M1 PO (16:32)
[2017-09-22 20:00] VITALS: BP 130/52
[2017-09-23] VITALS: BP 112/48
[2017-09-23 06:44] LABS: CREATININE 1.69 mg/dL (0.70-1.30); POTASSIUM 4.1 mmol/L (3.5-5.1)
[2017-09-23 08:00] VITALS: BP 128/40
[2017-09-23 12:00] VITALS: BP 127/64
[2017-09-23 16:00] VITALS: BP 147/43
[2017-09-23 21:00] VITALS: BP 134/61
[2017-09-24] VITALS: BP 119/61
[2017-09-24 06:54] LABS: BASO # 0.1 10*3/uL (0.0-0.1); BASO % 0.5 % (0.0-1.0); EOS # 0.6 10*3/uL (0.0-0.4); EOS % 5.2 % (1.0-4.0); HEMATOCRIT 39.1 % (42.0-52.0); HEMOGLOBIN 12.7 g/dl (14.0-18.0); LYMPH # 2.8 10*3/uL (1.3-4.4); LYMPH % 22.8 % (27.0-41.0); MEAN CELL VOLUME 90.3 fl (80.0-94.0); MEAN CORPUSCULAR HGB 29.3 pg (27.0-31.0); MEAN CORPUSCULAR HGB CONC 32.5 g/dl (33.0-37.0); MEAN PLATELET VOLUME 9.5 fl (9.6-12.3); MONO # 1.2 10*3/uL (0.1-1.0); NEUT # 7.4 10*3/uL (2.3-7.9); NEUT % 60.9 % (47.0-73.0); PLATELET COUNT AUTOMATED 354 10*3/uL (130-400); RED BLOOD COUNT 4.33 10*6/uL (4.50-5.90); RED CELL DISTRI WIDTH 13.7 % (0-14.5); WHITE BLOOD COUNT 12.2 10*3/uL (4.8-10.8)
[2017-09-24 07:06] LABS: CHLORIDE 108 mmol/L (98-107); CREATININE 1.34 mg/dL (0.70-1.30); POTASSIUM 4.2 mmol/L (3.5-5.1); SODIUM 141 mmol/L (136-145)
[2017-09-24 07:10] LABS: BUN 35 mg/dl (7-24)
[2017-09-24 08:00] VITALS: BP 136/63
[2017-09-24 12:00] VITALS: BP 90/66
[2017-09-24 16:00] VITALS: BP 144/93
[2017-09-24 20:00] VITALS: BP 124/85
[2017-09-25] VITALS: BP 107/58; BP 154/63
[2017-09-25 06:41] LABS: BUN 26 mg/dl (7-24); CHLORIDE 109 mmol/L (98-107); CREATININE 1.18 mg/dL (0.70-1.30); POTASSIUM 4.6 mmol/L (3.5-5.1); SODIUM 143 mmol/L (136-145)
[2017-09-25 08:00] VITALS: BP 152/72
[2017-09-25 12:00] VITALS: BP 100/52
[2017-09-25 16:00] VITALS: BP 127/70
[2017-09-25 20:00] VITALS: BP 150/84
[2017-09-26] VITALS (9 sets, daily range): BP systolic 77–122; BP diastolic 38–72
[2017-09-26 07:26] LABS: BUN 27 mg/dl (7-24); CHLORIDE 110 mmol/L (98-107); CREATININE 1.15 mg/dL (0.70-1.30); POTASSIUM 4.3 mmol/L (3.5-5.1); SODIUM 142 mmol/L (136-145)
[2017-09-26 12:13] LABS: HEMATOCRIT 41.8 % (42.0-52.0); MEAN CELL VOLUME 95.7 fl (80.0-94.0); MEAN CORPUSCULAR HGB 29.7 pg (27.0-31.0); MEAN CORPUSCULAR HGB CONC 31.1 g/dl (33.0-37.0); MEAN PLATELET VOLUME 9.6 fl (9.6-12.3); NUCLEATED RED BLOOD CELL 0.2 % (0.0-0.0); PLATELET COUNT AUTOMATED 443 10*3/uL (130-400); RED BLOOD COUNT 4.37 10*6/uL (4.50-5.90); RED CELL DISTRI WIDTH 14.1 % (0-14.5); WHITE BLOOD COUNT 16.6 10*3/uL (4.8-10.8)
[2017-09-26 12:20] LABS: ABG HCO3 15.7 mmol/l (22-26); ABG O2 SATURATION 98.6 % (95-97); ARTERIAL BLOOD GAS PCO2 39.1 mmHg (35-45); ARTERIAL BLOOD GAS PH 7.223 (7.35-7.45)
[2017-09-26 12:22] LABS: ABG BASE EXCESS -11.2 mmol/L (-2.0-2.0)
[2017-09-26 12:25] LABS: ALBUMIN 2.2 gm/dl (3.1-4.5); CREATININE 1.49 mg/dL (0.70-1.30); PHOSPHOROUS 3.8 mg/dL (2.5-4.9); POTASSIUM 4.8 mmol/L (3.5-5.1); TOTAL PROTEIN 6.6 gm/dL (6.4-8.2)
[2017-09-26 12:29] LABS: TROPONIN I 1.44 ng/ml (<0.045)
[2017-09-26 12:58] LABS: PLATELET SUFFICIENCY HIGH (NORMAL); TOTAL CELLS COUNTED 100 #CELLS
[2017-09-26 14:16] LABS: ABG HCO3 16.4 mmol/l (22-26); ABG O2 SATURATION 99.8 % (95-97); ARTERIAL BLOOD GAS PCO2 28.3 mmHg (35-45); ARTERIAL BLOOD GAS PH 7.375 (7.35-7.45)
[2017-09-26 14:17] LABS: ABG BASE EXCESS -7.5 mmol/L (-2.0-2.0)
[2017-09-26 15:55] LABS: BILIRUBIN 1+ (NEGATIVE); BLOOD 3+ (NEGATIVE); CLARITY CLOUDY (CLEAR); COLOR YELLOW (YELLOW); GLUCOSE TRACE (NEGATIVE); KETONE TRACE (NEGATIVE); LEUKO ESTERASE NEGATIVE (NEGATIVE); NITRITE NEGATIVE (NEGATIVE); PH 5.5 (5.0-9.0); SPECIFIC GRAVITY >= 1.030 (1.005-1.030)
[2017-09-26 16:21] LABS: BACTERIA 2+
[2017-09-26 16:22] LABS: RBC 21-30 rbc/hpf (0-2)
[2017-09-26 17:01] LABS: ACT PARTIAL THROMBO TIME 42.1 SECONDS (20.8-31.5); INTERNATIONAL NORM RATIO 2.5 (2.0-3.5)
[2017-09-26 17:55] LABS: ABG BASE EXCESS -9.9 mmol/L (-2.0-2.0); ABG HCO3 14.2 mmol/l (22-26); ARTERIAL BLOOD GAS PCO2 25.2 mmHg (35-45); ARTERIAL BLOOD GAS PH 7.361 (7.35-7.45)
[2017-09-27] VITALS (7 sets, daily range): BP systolic 90–124; BP diastolic 42–69
[2017-09-27 05:19] LABS: BASO # 0.1 10*3/uL (0.0-0.1); BASO % 0.5 % (0.0-1.0); EOS # 0.1 10*3/uL (0.0-0.4); EOS % 0.4 % (1.0-4.0); HEMOGLOBIN 11.2 g/dl (14.0-18.0); LYMPH # 2.4 10*3/uL (1.3-4.4); LYMPH % 12.1 % (27.0-41.0); MEAN CORPUSCULAR HGB 29.2 pg (27.0-31.0); MEAN CORPUSCULAR HGB CONC 31.9 g/dl (33.0-37.0); MEAN PLATELET VOLUME 9.9 fl (9.6-12.3); MONO # 0.9 10*3/uL (0.1-1.0); MONO % 4.4 % (3.0-9.0); NEUT # 16.1 10*3/uL (2.3-7.9); NEUT % 81.6 % (47.0-73.0); NUCLEATED RED BLOOD CELL 0.1 % (0.0-0.0); PLATELET COUNT AUTOMATED 388 10*3/uL (130-400); RED BLOOD COUNT 3.84 10*6/uL (4.50-5.90); RED CELL DISTRI WIDTH 14.6 % (0-14.5); WHITE BLOOD COUNT 19.7 10*3/uL (4.8-10.8)
[2017-09-27 05:34] LABS: HEMATOCRIT 35.1 % (42.0-52.0); MEAN CELL VOLUME 91.4 fl (80.0-94.0)
[2017-09-27 05:52] LABS: ALBUMIN 1.8 gm/dl (3.1-4.5); POTASSIUM 4.7 mmol/L (3.5-5.1); TOTAL PROTEIN 5.6 gm/dL (6.4-8.2)
[2017-09-27 05:58] LABS: CREATININE 1.69 mg/dL (0.70-1.30)
== END 2017-09-27 22:22 | disposition expired | DRG 871 ==
LOC: ED 12:50 → EDHOLD 14:19 → ICCU 14:19 → 4E 14:19 → ICCU 09-26 11:54 → 4E 09-27 13:22
PROVIDERS: Emergency Medicine; Internal Medicine; Internal Medicine Critical Care Medicine
DX: A41.9 Sepsis, unspecified organism (principal); G93.41 Metabolic encephalopathy; J96.00 Acute respiratory failure, unspecified whether with hypoxia or hypercapnia; N17.0 Acute kidney failure with tubular necrosis; E43 Unspecified severe protein-calorie malnutrition; I47.2 Ventricular tachycardia; J18.9 Pneumonia, unspecified organism; L89.152 Pressure ulcer of sacral region, stage 2; D68.59 Other primary thrombophilia; E87.2 Acidosis; I25.810 Atherosclerosis of coronary artery bypass graft(s) without angina pectoris; I46.9 Cardiac arrest, cause unspecified; E11.22 Type 2 diabetes mellitus with diabetic chronic kidney disease; E11.649 Type 2 diabetes mellitus with hypoglycemia without coma; J43.2 Centrilobular emphysema; I95.9 Hypotension, unspecified; I48.2 Chronic atrial fibrillation; Z66 Do not resuscitate; Z51.5 Encounter for palliative care; E86.0 Dehydration; R65.20 Severe sepsis without septic shock; R62.7 Adult failure to thrive; E78.2 Mixed hyperlipidemia; I12.9 Hypertensive chronic kidney disease with stage 1 through stage 4 chronic kidney disease, or unspecified chronic kidney disease; N18.9 Chronic kidney disease, unspecified; I08.0 Rheumatic disorders of both mitral and aortic valves; D64.9 Anemia, unspecified; E87.8 Other disorders of electrolyte and fluid balance, not elsewhere classified; E11.65 Type 2 diabetes mellitus with hyperglycemia; E83.41 Hypermagnesemia; Z79.01 Long term (current) use of anticoagulants; Z79.899 Other long term (current) drug therapy; Z79.4 Long term (current) use of insulin; Z87.01 Personal history of pneumonia (recurrent); Z95.1 Presence of aortocoronary bypass graft; Z83.3 Family history of diabetes mellitus; Z82.49 Family history of ischemic heart disease and other diseases of the circulatory system; Z82.3 Family history of stroke; Z79.84 Long term (current) use of oral hypoglycemic drugs; I25.2 Old myocardial infarction; Z68.20 Body mass index [BMI] 20.0-20.9, adult